=== PATIENT | female | born 1970 | race Caucasian/White ===

== ENCOUNTER 2016-07-07 10:21 | Inpatient (IN) | payer MEDICARE, BC ==
[~2016-07-07] VITALS: Ht 162.6 cm; Wt 104.1 kg
--- NOTE | ~2016-07-07 | CON ---
PATIENT'S NAME: SHREYAS BURROUGHS [facility] AGE: 45 Y [address] ROOM: [place] [address] LOCATION: GPCU ADMIT DATE: 07/07/2016 Consultation DISCHARGE DATE: FAMILY PHYSICIAN: Lakisha Birch MD ATTENDING PHYSICIAN: Ozzie OCONNOR REFERRING PHYSICIAN: LETICIA CRUZ MD REASON FOR CONSULT: Elevated enzymes. HISTORY OF PRESENT ILLNESS: This is a 45-year-old female, who was admitted to the ICU after cardiac arrest during surgical procedure for fistula graft. She was intubated before her surgery and at the end of the procedure, she received protamine. Her blood pressures dropped, her end-tidal CO2 dropped, and she had PEA. She received epinephrine and CPR was performed. She did have spontaneous return of a pulse and was placed on IV pressors and taken to the ICU. Upon evaluation in the ICU, her blood pressures were very high and she has purposeful movement and opens her eyes while on the ventilator. Throughout the cardiac monitoring, there has been no other rhythm disturbances noted other than the PEA during surgery. Her cardiac enzymes did elevate from 0.04 to as high as 0.192 and now are starting to trend down at 0.181. Her CPK went from 33 up to 1437 and a CK-MB went from 0.5 to 11.7. She has a proBNP of 2719 and it increased to 5563. Her EKG did not show any ST or T-wave changes. Because she is intubated, I am unable to assess whether or not she has had any exertional chest pain or shortness of breath. PAST MEDICAL HISTORY: Was obtained from past medical records. 1. End-stage renal disease, currently on peritoneal dialysis. 2. Obstructive sleep apnea, using CPAP. 3. Fibromyalgia. 4. Depression. 5. Hypercholesterolemia. 6. Diabetes mellitus. 7. Migraine. 8. History of pancreatitis in January 2016. PAST SURGICAL HISTORY: 1. Cholecystectomy on 09/01/2014. 2. Right arm brachiobasilic AV fistula on 02/18/2016. 3. Right arm basilic superficialization on 04/28/2016. 4. Left arm brachioaxillary AV graft on 07/07/2016. 5. Tubal ligation. 6. Placement of peritoneal tap. PATIENT'S NAME: SHREYAS BURROUGHS [facility] AGE: 45 Y [address] ROOM: [address] [address] LOCATION: GPCU ADMIT DATE: 07/07/2016 Consultation DISCHARGE DATE: FAMILY PHYSICIAN: Lakisha Birch MD ATTENDING PHYSICIAN: Ozzie OCONNOR ALLERGIES: MAGNESIUM. HOME MEDICATIONS: 1. Acetaminophen 325 to 650 as needed. 2. Albuterol sulfate, ProAir HFA, 1 puff every 4 hours. 3. Ascorbic acid 500 mg every h.s. 4. Aspirin 81 mg every day. 5. PhosLo 667 mg tablets, she takes 2668 mg t.i.d. 6. Celexa 20 mg daily. 7. Benadryl 75 mg every h.s. 8. Docusate sodium 100 mg every day. 9. Ferrous sulfate 325 mg every h.s. 10. Flovent 2 puffs inhalation b.i.d. 11. Folic acid 1 mg every h.s. 12. Neurontin 300 mg, she takes three 100 mg capsules every h.s. 13. Gentamicin cream, apply topically to peritoneal dialysis exit site daily. 14. Insulin pump with NovoLog insulin. 15. Xalatan eye drops, 1 drop, both eyes daily. 16. Prilosec 40 mg every day. 17. Pravastatin 20 mg daily, she has not started. 18. Inderal 10 mg every h.s. SOCIAL HISTORY: She is . She lives at home with her . She denies history of smoking or illicit drug use. FAMILY HISTORY: Obtained at preop questioning. Mother had high blood pressure, she is a type 2 diabetic, she is alive and well. Father is healthy. She has a sister with breast cancer and another sister, who was born with a hole in her heart. REVIEW OF SYSTEMS: Was unobtainable since she is on the ventilator. PHYSICAL EXAMINATION: VITAL SIGNS: She is 5 feet and 4 inches, she weighs 232 pounds, heart rate is 106, regular sinus rhythm to sinus tachycardia, she is afebrile. HEENT: She has an oral ET tube in. LUNGS: Her lung sounds are clear to auscultation. CV: Regular, but tachycardic. ABDOMEN: Obese, but soft. There is no bruits felt in the left graft surgical site. PATIENT'S NAME: SHREYAS BURROUGHS [facility] AGE: 45 Y [address] ROOM: [place] [address] [facility] ADMIT DATE: 07/07/2016 Consultation DISCHARGE DATE: FAMILY PHYSICIAN: Lakisha Birch MD ATTENDING PHYSICIAN: Ozzie OCONNOR EXTREMITIES: Cool to touch. LABORATORY DATA: Hemoglobin is 7.9, white count 25.7, BUN 62, creatinine 10, sodium 138, potassium is 4.8, and hemoglobin A1c is 6.2. ASSESSMENT: 1. Elevated cardiac enzymes, initially they were normal, this certainly could be related to her most recent cardiac event that included CPR. We will check an echocardiogram and review for left ventricular function and wall motion abnormalities. 2. Anemia. She will continue with her iron therapy. 3. End-stage renal disease. She is on peritoneal dialysis. 4. Diabetes mellitus. This is being monitored by the hospitalist. The assessment and plan, history of present illness, and physical exam are per Dr. Howell. We would like to thank Dr. Oconnor for allowing us to participate in her care. TU TANG APRN FOR GIOVANY HOWELL MD TGP/modl /[id number] d: 07/10/[id number] t: 07/30/16 0922, CONSULTATION REPORT
--- NOTE | ~2016-07-07 | ENPV ---
Vascular Lower Extremities Arterial Duplex Procedure Demographics Patient Name SHREYAS BURROUGHS Date of Study 07/08/2016 Patient Number [id number] Gender Female Date of 1970 Age 45 Visit Number [id number] Height 64 Accession Number [id number] Weight 232.01 Referring Eyal Zamora MD Interpreting David García MD Physician David García MD Physician Physician Ordering Physician David García MD Clothing Sorter Product Support Sales Representative Pravin Sosa [facility] Conclusions Summary Duplex imaging of the right leg reveals a hemodynamically significant stenosis of the common femoral artery. Possible hemodynamically significant stenosis of the profunda femoral artery. 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 Duplex imaging of the left leg suggests mild diffuse disease in the left lower extremity. Procedure Type of Study: Extremities Arteries:Lower Extremities Arterial Duplex, Arterial Lower Extremity Right. Indications for Study:Absent pulses. Patient Status:STAT. Study Location:Inpatient Portable. Technical Quality:Limited visualization due to body habitus. - Preliminary reported to:Dr. Hernandez. Velocities are measured in cm/s ; Diameters are measured in cm LE Duplex Measurements + ++-----+ +----+---+ + ! !!Right! !Left! ! ! + ++-----+ +----+---+ + !Location !!PSV !Wave Desc.! !PSV!Wave Desc. ! + ++-----+ +----+---+ + !Dist EIA !!211 !Biphasic ! !160!Biphasic ! + ++-----+ +----+---+ + !Femoral !!338 !Biphasic ! !205!Triphasic ! + ++-----+ +----+---+ + !PFA !!73 !Monophasic! ! ! ! + ++-----+ +----+---+ + !Prox SFA !!150 !Monophasic! ! ! ! + ++-----+ +----+---+ + !Mid SFA !!126 !Monophasic! ! ! ! + ++-----+ +----+---+ + !Dist SFA !!62 !Monophasic! ! ! ! + ++-----+ +----+---+ + !Prox Popliteal !!58 !Monophasic! ! ! ! + ++-----+ +----+---+ + !Mid Popliteal !!0 !Occluded ! ! ! ! + ++-----+ +----+---+ + !Dist Popliteal !!0 !Occluded ! ! ! ! + ++-----+ +----+---+ + !Prox NEWS CAMERA PERSON !!0 !Absent ! ! ! ! + ++-----+ +----+---+ + !Mid NEWS CAMERA PERSON !!0 !Absent ! ! ! ! + ++-----+ +----+---+ + !Dist NEWS CAMERA PERSON !!0 !Absent ! ! ! ! + ++-----+ +----+---+ + !DP !!0 !Absent ! ! ! ! + ++-----+ +----+---+ + Signature dtt: ARASH HERNANDEZ: 07/08/16 0811 Physician Self Edit
--- NOTE | ~2016-07-07 | OR ---
PATIENT'S NAME: SHREYAS BURROUGHS [facility] AGE: 45 Y [address] ROOM: [place] [address] LOCATION: CU ADMIT DATE: 07/07/2016 OR/Procedure Report DISCHARGE DATE: FAMILY PHYSICIAN: Lakisha Birch MD ATTENDING PHYSICIAN: RICKY HERNANDEZ SURGEON: Ricky Hernandez MD BARREL FILLER HEAD: DATE OF PROCEDURE: 07/07/2016 PREOPERATIVE DIAGNOSIS: End-stage renal disease. POSTOPERATIVE DIAGNOSIS: End-stage renal disease. PROCEDURE: Left arm brachial axillary AV graft. BICYCLE REPAIR TECHNICIAN: RUDDY Lester. ANESTHESIA: General. ESTIMATED FLUID LOSS: 10 mL. COMPLICATIONS: The patient had a sudden cardiac arrest at the end of the surgery. DESCRIPTION OF PROCEDURE: The patient was brought to the operating room, placed supine on the operating room table, prepped and draped in a sterile manner. Preoperative time-out was performed. The patient received preoperative antibiotics. We made a standard incision 2 cm proximal to the antecubital fossa. Dissected down to the fascia, incised the fascia in a longitudinal manner. Dissected out the brachial artery. This artery was extremely small in nature. We then repeated the same process with the axillary vein, dissected down to the fascia, incised the fascia in a longitudinal manner. This vein was also small in the region of 2 to 3 mm. We tunneled a 4 x 7 graft from the axillary incision to the brachial incision. We then gave 5000 units of heparin. We clamped on the proximal distal artery, made arteriotomy size 4 mm and then did a standard running 6-0 Prolene anastomosis. We then repeated the same thing in the axilla with a 7 mm anastomosis from the graft to the vein. Deep layers were closed with 2-0 and 3-0 Vicryl after reversal of heparin with protamine and then the skin was closed with interrupted nylons. Immediately post procedure, the patient just had a sudden loss of end-tidal CO2 and was found not to have a measurable blood pressure. ACLS protocols were commenced, and the patient regained spontaneous circulation as well as breathing. A central line was placed emergently as well as a femoral arterial line in the operating room. The patient was transferred to the Surgical ICU in stable, but critical condition. PATIENT'S NAME: SHREYAS BURROUGHS [facility] AGE: 45 Y [address] ROOM: [address] [address] LOCATION: GICU ADMIT DATE: 07/07/2016 OR/Procedure Report DISCHARGE DATE: FAMILY PHYSICIAN: Lakisha Birch MD ATTENDING PHYSICIAN: RICKY HERNANDEZ RICKY HERNANDEZ MD FKM/modl /[id number] d: 07/07/16 2243 t: 07/10/16 0927, OPERATIVE SUMMARY
--- NOTE | ~2016-07-07 | OR ---
PATIENT'S NAME: SHREYAS BURROUGHS [facility] AGE: 45 Y [address] ROOM: [place] [address] [facility] AD[facility] DATE: 07/07/2016 OR/Procedure Report DISCHARGE DATE: FAMILY PHYSICIAN: Lakisha Birch MD ATTENDING PHYSICIAN: Ozzie DOMINIQUE SURGEON: Aleja Jacques MD MICA LAMINATING MACHINE FEEDER: DATE OF PROCEDURE: 07/15/2016 PROCEDURE PERFORMED: Esophagogastroduodenoscopy. INDICATION: Anemia. MEDICATIONS: Please see Anesthesiology record for details. CONSENT: The risks/benefits/alternatives were discussed and the patient or her power of director data expressed understanding and agreed to proceed. Informed consent was obtained and placed in the chart. Time-out was completed prior to starting the procedure. PROCEDURE: Patient was placed in the left lateral decubitus position. One- lead EKG monitoring was used along with intermittent blood pressure monitoring and pulse oximetry. Bite block was placed in the patient's mouth. The above medications were given and titrated to response. Once adequate sedation was completed, the endoscope was passed through the patient's mouth into the posterior oropharynx. The endoscope was then passed into the esophagus, stomach and duodenal bulb. The duodenum was examined through the third portion. The endoscope was then withdrawn into the stomach. In the stomach, retroflexion was completed. The scope was then straightened and withdrawn from the patient. The patient tolerated the procedure well. There were no complications. FINDINGS: 1. Normal esophagus. 2. Gastritis with erosions in the fundus. There was some fresh blood in this area but no active bleeding from the erosions at the time of the procedure. 3. No ulcerations were seen. 4. Normal duodenum with prominent villi, therefore no biopsies were taken. ASSESSMENT AND PLAN: Chronic anemia: I suspect the patient's anemia is multifactorial given known end-stage renal disease. However, she does have erosions in the stomach which are likely contributing and oozing intermittently. Therefore, I recommend b.i.d. PPI for one month and then daily PPI therapy. She should also have a colonoscopy done as an outpatient. PATIENT'S NAME: SHREYAS BURROUGHS [facility] AGE: 45 Y [address] ROOM: [place] [address] LOCATION: GPCU ADMIT DATE: 07/07/2016 OR/Procedure Report DISCHARGE DATE: FAMILY PHYSICIAN: Lakisha Birch MD ATTENDING PHYSICIAN: Ozzie DOMINIQUE She is currently refusing to do prep as an inpatient. Okay to advance diet as tolerated. J MD DELIA BELLO/yovany /[id number] d: 07/15/16 1624 t: 08/20/16 0842, OPERATIVE SUMMARY
--- NOTE | ~2016-07-07 | ECHO ---
Transthoracic Echocardiography Report (TTE) Demographics Patient Name SHREYAS BURROUGHS Date of Study 07/08/2016 Patient Number [id number] Visit Number [id number] Date of 1970 Room Number G6203 Accession Number [id number] Gender Female Age 45 year(s) Referring Eyal Maddoxsslynette Zamora Occupational Therapy Assistant Pravin Preciado Physician MD David Cary MD Physician Interpreting Juan Jose Daniel Polymerization Supervisor Physician Supervising Ordering Physician Marlyn Cary MD, MD/MLP Nurse Stress Strip Catcher Conclusions Contractility Score Summary Normal Left Ventricular contractility was noted. Summary Definity contrast used to help visualize the endocardial borders better to assess for regional WMA. LV systolic function is hyperdynamic. The estimated left ventricular ejection fraction is >70%. Mild concentric left ventricular hypertrophy. Diastolic assessment reveals Grade I diastolic dysfunction. Apical artifact. After Definity contrast iv there is no filling defect suggestive of thrombus. Epicardial fat pad noted. Procedure Type of Study TTE procedure:2D Echocardiogram, M-Mode, Doppler , Color Doppler. Procedure Date Date: 07/08/2016 Start: 07:14 AM Study Location: Inpatient Portable Technical Quality: Fair due to body habitus. Indications:Elevated cardiac enzymes. Patient Status: Routine Contrast Medium: Definity. Amount - 1 ml HR: 108 bpm BP: 101/60 mmHg M-Mode/2D Measurements LV Diastolic Dimension: 3.93 cm LV Systolic Dimension: 1.71 cm LV Septum Diastolic: 1.25 cm LV PW Diastolic: 1.2 cm AO Root Dimension: 2.4 cm Cardiac Output: 9.59 l/min LA Dimension: 3.7 cm EF Estimated: 65 % LVOT: 1.8 cm LVOT VTI: 34.9 cm RV Base: 2.23 cm LV Stroke volume: 88.76 ml RV Length: 7.2 cm TAPSE: 1.81 cm TDI-S': 18.5 cm/s Doppler Measurements AV Peak Velocity: 2.05 m/s MV Peak E-Wave: 1.04 m/s AV Peak Gradient: 16.81 mmHg MV Peak A-Wave: 1.47 m/s AV Mean Gradient: 11 mmHg MV E/A Ratio: 0.71 LVOT Peak Velocity: 1.9 m/s MV P1/2t: 45 msec TR Gradient:12.53 mmHg PV Peak Velocity: 1.38 m/s Estimated RAP:10 mmHg PV Peak Gradient: 7.62 mmHg Estimated RVSP: 23 mmHg Estimated PASP: 22.53 mmHg E' Septal Velocity: 0.07 m/s A' Septal Velocity: 0.14 m/s E' Lateral Velocity: 0.1 m/s A' Lateral Velocity: 0.18 m/s Findings Left Ventricle The left ventricle is normal in size . Mild concentric left ventricular hypertrophy. Diastolic assessment reveals Grade I diastolic dysfunction. Apical artifact. After Definity contrast iv there is no filling defect suggestive of thrombus. Right Ventricle Normal right ventricle structure and function. Left Atrium Normal left atrial size. Right Atrium Normal right atrial size. IVC measures 1.20 cm with inspiratory collapse. Mitral Valve Mild mitral annular calcification. Mild calcification of the mitral valve. Aortic Valve The aortic valve is mildly sclerotic. It is not well seen. Tricuspid Valve Trivial tricuspid regurgitation by color Doppler. Pulmonic Valve Normal pulmonic valve structure and function. Pericardial Effusion No evidence of pericardial effusion. Epicardial fat pad noted. Miscellaneous Visualized portions of the aortic root and ascending aorta appear normal in size. Pleural Effusion No evidence of pleural effusion. Contractility Score LV regional wall motion:(0-Non visualized 1-Normal 2-Hypokinesis 3-Akinesis 4-Dyskinesis 5-Aneurysm) Signature dtt: SEB CORRALES dtd: 07/08/16 0714 Physician Self Edit
--- NOTE | ~2016-07-07 | CON ---
PATIENT'S NAME: SHREYAS BURROUGHS [facility] AGE: 45 Y [address] ROOM: [address] [address] LOCATION: GICU ADMIT DATE: 07/07/2016 Consultation DISCHARGE DATE: FAMILY PHYSICIAN: Lakisha Birch MD ATTENDING PHYSICIAN: ARASH ROUSE REFERRING PHYSICIAN: LETICIA CRUZ MD CHIEF COMPLAINT: Cardiopulmonary arrest secondary to pulseless electrical activity during AV graft placement procedure, likely secondary to protamine reaction. HISTORY OF PRESENT ILLNESS: This is a 45-year-old female who has a long history of end-stage renal disease, on peritoneal dialysis at home, and today underwent left arm AV graft placement and during the procedure, the patient received protamine and apparently the patient had a severe allergic reaction and developed cardiac arrest from pulseless electrical activity and also acute hypoxemic respiratory failure with pulmonary arrest, requiring intubation, and I am not sure how long was the cardiac resuscitation with CPR. The patient did not require hypothermia protocol. The patient was intubated and stabilized and had return of spontaneous circulation and was transferred to the ICU for further management. The patient is currently intubated and sedated and also on Levophed drip and currently getting the usual peritoneal dialysis. The patient is currently hemodynamically stable, on Levophed drip, sedated, and saturating at 100% on ventilator. Hospitalist team has been consulted for management of her hyperglycemia. REVIEW OF SYSTEMS: As mentioned in the history of present illness. All other systems are reviewed and are negative except those mentioned in history of present illness. PAST MEDICAL HISTORY: According to the medical chart and I got the story from the patient's mother at the bedside: 1. End-stage renal disease, on peritoneal dialysis every night. 2. Type 1 diabetes, on insulin pump. 3. Obstructive sleep apnea, on home CPAP. 4. Depression. 5. Fibromyalgia. ALLERGIES: PROTAMINE ON THIS ADMISSION AND SHE ALSO HAS CEPHALEXIN WELL MAGNESIUM, INSULIN ZINC, AND ADHESIVE TAPE. FROM THE MEDICAL RECORDS WITH CEPHALEXIN, SHE GETS THROAT TIGHTENING, WHEEZING, AND SHORTNESS OF BREATH; WITH THE ADHESIVE TAPE, SHE GETS BLISTER FROM THE TAPE; MAGNESIUM CAUSES RASH, PATIENT'S NAME: SHREYAS BURROUGHS [facility] AGE: 45 Y [address] ROOM: [address] [address] LOCATION: [facility] ADMIT DATE: 07/07/2016 Consultation DISCHARGE DATE: FAMILY PHYSICIAN: Lakisha Birch MD ATTENDING PHYSICIAN: ARASH ROUSE SWELLING, AND ITCHING; INSULIN ZINC, SHE DOES NOT RECALL THE REACTION. HOME MEDICATIONS: 1. Tylenol 325-650 mg p.o. every 6 hours p.r.n. for pain or fever. 2. Albuterol 1 puff inhalation every 4 hours p.r.n. for shortness of breath or wheezing. 3. Vitamin C 500 mg p.o. every night at bedtime. 4. Aspirin 81 mg p.o. daily. 5. Calcium acetate 2668 mg p.o. 3 times a day with meals. 6. Celexa 20 mg p.o. daily. 7. CPAP at night. 8. Pressure is at 12 cm of water. 9. Benadryl 75 mg p.o. every night at bedtime. 10. Colace 100 mg p.o. daily p.r.n. for constipation. 11. Ferrous sulfate 325 mg p.o. every night at bedtime. 12. Flovent 2 puff inhalation twice a day p.r.n. for shortness of breath and nasal allergy. 13. Folic acid 1 mg p.o. every night at bedtime. 14. Gabapentin 300 mg p.o. every night at bedtime. 15. Gentamicin cream 1 application topical every day. 16. Insulin pump. 17. Latanoprost 1 drop each eye every night at bedtime. 18. Prilosec 40 mg p.o. daily. 19. Pravastatin 20 mg p.o. daily. 20. Propranolol 10 mg p.o. every night at bedtime. SOCIAL HISTORY: Cannot be obtained from the patient given the patient is intubated and sedated. I got a social history from the patient's mother at the bedside and the patient's mother says that she was a very light former social smoker, does not remember how much or how long and she was a former social alcohol drinker, but was never abusive and never had alcohol withdrawal. Denies any illegal drugs. PAST SURGICAL HISTORY: From the medical record, it shows status post cholecystectomy and also tubal ligation. FAMILY HISTORY: Mother suffers from type 2 diabetes and hypertension and is alive. Father from a motor vehicle accident many years ago. The patient's mother does not remember much about the past medical history of her . PHYSICAL EXAMINATION: VITAL SIGNS: At the time of my dictation, temperature 98.3, heart rate 110, PATIENT'S NAME: SHREYAS BURROUGHS [facility] AGE: 45 Y [address] ROOM: [place] [address] LOCATION: [facility] ADMIT DATE: 07/07/2016 Consultation DISCHARGE DATE: FAMILY PHYSICIAN: Lakisha Birch MD ATTENDING PHYSICIAN: ARASH ROUSE respirations 15, blood pressure 114/52, and saturation 100% on AC mode, tidal volume 450, rate at 15, PEEP at 5, FiO2 is 30%, ET CO2 26 currently. GENERAL APPEARANCE: Sedation score about 3 and intubated. HEENT: Pupils are equally round and reactive to light. Cannot assess extraocular muscle movement given the patient is sedated. No JVD. Nasal turbinates are normal without any signs of bleeding. Oral cavity is intubated. No lip swelling. No tongue swelling at the moment. CARDIOVASCULAR: Tachycardic. No murmur, no rubs, no gallops. RESPIRATORY: Clear. No wheezing, no rales, no rhonchi, no crackles. ABDOMEN: Obese, soft. Bowel sounds decreased. I could not appreciate any mass. No abdominal rigidity. Has a peritoneal dialysis catheter in place. EXTREMITIES: +1 pitting edema in bilateral lower extremity anterior calves. SKIN: No ulcer, no rash, no cyanosis at the moment. MUSCULOSKELETAL: No muscle rigidity. Passive range of motion intact in all 4 extremities. NEUROLOGIC: The patient's sedation score is 3. Cannot perform a full neurological exam. Babinski negative bilaterally. LABORATORY DATA: Troponin less than 0.04 at the first set, CPK 33, ProBNP 2719, and CK-MB 0.5. White blood cells 29.5, hemoglobin 10, hematocrit 32.2, MCV 105.9, and platelet 470. Glucose 278, BUN 44, creatinine 10.3, sodium 138, potassium 4.2, chloride 103, CO2 20, and calcium 8.0. Total protein 6, albumin 2.0, AST 32, ALT 17, alkaline phosphatase 120, and total bilirubin 0.4. Phosphorus 5.2, magnesium 1.5, GFR 4, anion gap 19.2. IMAGING STUDY: Chest x-ray today after intubation showed endotracheal tube about 1 cm above the ortega. Right internal jugular catheter tip is in the upper right atrium. No pneumothorax. Heart and lungs are essentially normal. EKG today, July 07, 2016, at 3:24 p.m. shows sinus tachycardia, heart rate 105, no acute ischemic changes. MO 162 msec, QRS 81 msec, QTc 460 msec. I do not appreciate any ST elevation or ST depression. ASSESSMENT AND PLAN: 1. Type 1 diabetes management: Insulin pump will be taken off given the patient is intubated and sedated. For now, I am going to check a basic metabolic panel and look at bicarbonate to make sure she is not in DKA. In the meantime, I am going to treat her with subcutaneous insulin regimen using the formula of 1 unit/kg per day divided in 2 doses. This is a formula for a rough estimate of daily insulin requirement. She weighed 105 kg; therefore, she will require roughly 100 units of insulin daily requirement per day. 50% of this will be given a long-acting in 2 divided doses which will be equal to 25 mg twice a day and other 50 units of insulin will be given as fast acting typically and the patient's PATIENT'S NAME: SHREYAS BURROUGHS [facility] AGE: 45 Y [address] ROOM: [address] [address] LOCATION: [facility] ADMIT DATE: 07/07/2016 Consultation DISCHARGE DATE: FAMILY PHYSICIAN: Lakisha Birch MD ATTENDING PHYSICIAN: ARASH ROUSE eating will be 3-4 times a day, but since the patient is n.p.o. and intubated and sedated, I will be getting the fast acting with subcutaneous regular insulin every 4 hours with a high dose algorithm. Depending on her glycemia every 4 hours, we can titrate the regimen. For the patient's DKA, of course I am going to start insulin drip. If she fails current subcutaneous insulin regimen with Levemir and also the regular high dose algorithm, then we will put her on the insulin drip and transition to subcutaneous regimen once the fingerstick glucose is under control. Hence, we will be careful with IV fluids given the patient is a dialysis patient and does not make any urine and is currently on peritoneal dialysis. Further plan depends on clinical course. We will check a hemoglobin A1c as well. 2. Cardiopulmonary arrest secondary to pulseless electrical activity in the setting of protamine reaction: The patient is currently intubated and sedated and also continue Levophed drip to keep the MAP more than 65. Director Of Sustainability has been consulted and is managing the critical care of this patient involving the ventilator setting. We will also titrate the Levophed as necessary to keep the MAP more than 65. Hence, we will be careful with vasopressor-induced acrocyanosis as a side effect from vasoconstriction effect causing cyanosis in the distal extremities. I will check another EKG and cardiac enzymes in the morning. I will also get an echo in the morning. Cardiology can be consulted if necessary. Currently, EKG is not ischemic. Troponin, CK-MB, and CPK are normal at the first set. Continue IV Solu-Medrol as already ordered by seed cleaner in the setting of anaphylaxis from protamine. 3. End-stage renal disease, on dialysis: Continue current peritoneal dialysis. Nephrology is following and managing. 4. Obstructive sleep apnea: She is currently intubated and sedated. Continue the vent setting being managed by the seed cleaner. 5. Deep venous thrombosis prophylaxis: The patient is currently on heparin subcutaneous 5000 units 3 times a day. Time spent on the day of consultation in care 50 minutes including chart review, examining the patient, interviewing the patient's mother at the bedside, and went over the plan of care in detail and addressing all the questions and concerns for the nurses and also for the patient's mother at the bedside. NAI CÁRDENAS MD CC/modl PATIENT'S NAME: SHREYAS BURROUGHS [facility] AGE: 45 Y [address] ROOM: [address] [place] [id number] LOCATION: [facility] ADMIT DATE: 07/07/2016 Consultation DISCHARGE DATE: FAMILY PHYSICIAN: Lakisha Birch MD ATTENDING PHYSICIAN: ARASH ROUSE /[id number] d: 07/08/16 0245 t: 07/27/16 2310, CONSULTATION REPORT
--- NOTE | ~2016-07-07 | CON ---
PATIENT'S NAME: SHREYAS BURROUGHS [facility] AGE: 45 Y [address] ROOM: [place] [address] LOCATION: GPCU ADMIT DATE: 07/07/2016 Consultation DISCHARGE DATE: FAMILY PHYSICIAN: Lakisha Birch MD ATTENDING PHYSICIAN: Ozzie DOMINIQUE DATE OF CONSULTATION: 07/07/2016 REFERRING PHYSICIAN: LETICIA CRUZ MD This is a [facility] Nephrology consultation. REASON FOR CONSULTATION: End-stage renal disease, on peritoneal dialysis. HISTORY OF PRESENT ILLNESS: This is a 45-year-old female patient, who is well known to Dr. Hoyos, who presents to the OR today with Dr. Hernandez for a left arm brachial axillary AV graft placement. The procedure went well until the patient did receive protamine to reverse her heparin and had a reaction that caused cardiac arrest. The patient was transferred to ICU for further management. At the time of the exam, the patient was intubated and sedated, on pressors. She does have a longstanding history of end-stage renal disease from diabetic nephropathy and is currently on CCPD. She has been having some complications with her CCPD and has been evaluated by Dr. Hernandez for fistula placement and it is known that she does have small vessels and recently lost her AV fistula in the opposite arm. She was seen by Dr. Hernandez today for AV graft placement. Therefore, Dr. Hooys has been asked to manage her peritoneal dialysis while she is hospitalized. PAST MEDICAL HISTORY: As listed above including; 1. End-stage renal disease, on CCPD. 2. Diabetic nephropathy. 3. Major depressive disorder. 4. Hypoalbuminemia. 5. Secondary hyperparathyroidism. 6. Anemia of chronic disease. PAST SURGICAL HISTORY: Peritoneal dialysis catheter placement. SOCIAL HISTORY: The patient does live at home with her , who is her primary caregiver. He does also help in a care partnership for CCPD. No history of smoking or PATIENT'S NAME: SHREYAS BURROUGHS [facility] AGE: 45 Y [address] ROOM: [address] [address] LOCATION: GPCU ADMIT DATE: 07/07/2016 Consultation DISCHARGE DATE: FAMILY PHYSICIAN: Lakisha Birch MD ATTENDING PHYSICIAN: TRIP,Dagmawe illicit drug use. No alcohol abuse. FAMILY HISTORY: Reviewed and is noncontributory towards CKD or dialysis. ALLERGIES: BEEF, INSULIN, AND MAGNESIUM. CURRENT HOME MEDICATIONS: 1. Tylenol 650 mg p.o. q.6 hours p.r.n. for pain. 2. Albuterol 1 puff inhalation q.4 hours p.r.n. for shortness of breath. 3. Ascorbic acid 500 mg p.o. q.h.s. 4. Aspirin 81 mg daily at bedtime. 5. Calcium acetate 2668 mg p.o. t.i.d. with meals. 6. Celexa 20 mg daily. 7. Benadryl 25 mg 3 tablets at bedtime. 8. Docusate 100 mg daily. 9. Ferrous sulfate 325 mg daily at bedtime. 10. Fluticasone 2 puffs inhalation twice a day p.r.n. for shortness of breath. 11. Folic acid 1 mg daily at bedtime. 12. Gabapentin 300 mg p.o. q.h.s. 13. Gentamicin 1 application topically daily, apply to peritoneal dialysis exit site. 14. Insulin aspart per insulin pump. 15. Xalatan 2.5 drops, 1 drop in both eyes daily. 16. Omeprazole 20 mg 2 tablets daily. 17. Pravastatin 20 mg daily. 18. Propranolol 10 mg daily at bedtime. REVIEW OF SYSTEMS: Essentially unable to obtain a full review of systems due to the patient's current intubated and sedated status. is interviewed and does offer no complaints. LABORATORY DATA: WBCs 25.7, hemoglobin 7.9, hematocrit 25.5, and platelets 262. Glucose is 540, BUN is 60, creatinine 9.9, sodium 133, potassium 4.9, chloride 98, CO2 is 19, calcium is 8.9, albumin is 2.6, AST is 68, ALT is 26, alkaline phosphatase 73, and Mag is 1.6. PHYSICAL EXAMINATION: VITAL SIGNS: Blood pressure is 149/57, pulse is 115, respirations 16, temperature 98.5, and saturations are 100% on 30% FiO2. Weight is 107 kg. GENERAL: On exam, the patient is intubated and sedated. PATIENT'S NAME: SHREYAS BURROUGHS [facility] AGE: 45 Y [address] ROOM: [address] [place], [place] [address] [facility] ADMIT DATE: 07/07/2016 Consultation DISCHARGE DATE: FAMILY PHYSICIAN: Lakisha Birch MD ATTENDING PHYSICIAN: Ozzie DOMINIQUE HEENT: Her head is normocephalic and atraumatic. Eyes are reactive to light and had no asymmetry. Nose is midline. Mouth, no gingival bleeding. ET tube present. NECK: Full and thick. Unable to assess for JVD. Trachea is midline. No thyromegaly or lymphadenopathy. LUNGS: Lung sounds are diminished in the bases bilaterally. CARDIOVASCULAR: Regular rate and rhythm. Tachycardic occasionally with a heart rate of 112 beats per minute on auscultation. ABDOMEN: Soft, nontender, and nondistended. Bowel sounds are positive. Obese. EXTREMITIES: Show no lower extremity edema bilaterally. SKIN: She does have diffuse petechiae rash on both lower extremities and upper extremities. ASSESSMENT AND PLAN: 1. End-stage renal disease, on CCPD. We will obtain the patient's outpatient clinical record and provide peritoneal dialysis accordingly. The patient does appear at this time to be volume overloaded. We will ultrafiltrate as tolerated with labile blood pressures. At the time of exam, the patient is currently on Levophed. 2. Acute respiratory failure, intubated per Dr. Cruz at this time. 3. Status post cardiac arrest. 4. Cardiogenic shock. This is likely secondary to cardiac arrest and the patient is on Levophed. We will wean as tolerated. 5. Protamine reaction. This was severe, manifested by hemodynamic collapse. We will follow with recommendations. 6. Status post left arm arteriovenous graft placement. Due to the patient's cardiac arrest, this may not be functional. We will follow with further recommendations as warranted. This patient has been seen and assessed by Dr. Hoyos. Her care is being conducted in consultation with Dr. Hoyos as well as me. We will plan the patient's CCPD as previously scheduled. ALIDA RANDOLPH DNP, [employer] CHRIS HOYOS MD ENS/modl /[id number] d: 07/12/16 1937 t: 07/22/16 1640, CONSULTATION REPORT
--- NOTE | ~2016-07-07 | DS ---
PATIENT'S NAME: SHREYAS BURROUGHS [facility] AGE: 45 Y [address] ROOM: [place] [address] LOCATION: GPCU ADMIT DATE: 07/07/2016 Discharge Summary DISCHARGE DATE: 07/16/2016 FAMILY PHYSICIAN: Lakisha Birch MD ATTENDING PHYSICIAN: Anastasia Horne ADMITTING DIAGNOSIS: Anaphylactic shock. DISCHARGE DIAGNOSIS: Anaphylactic shock, resolved. SECONDARY DIAGNOSES: 1. Acute respiratory failure - present on admission, resolved. 2. Acute metabolic encephalopathy, present on admission, resolved. 3. Diabetic ketoacidosis, present on admission, resolved. 4. Anemia of blood loss, chronic, stable, status post 1 unit of packed red blood cells. 5. Upper gastrointestinal bleed, present on admission, chronic, status post EGD, on Protonix. 6. Diabetes mellitus type 1, present on admission, on insulin pump. 7. Urinary tract infection, present on admission, treated with antibiotic. 8. Obstructive sleep apnea, present on admission, on CPAP. 9. Ischemic right foot secondary to pressor use, resolved. 10. End-stage renal disease, on peritoneal dialysis. Present on admission. 11. Physical deconditioning. PT, OT. PROCEDURES: EGD, peritoneal dialysis, central line placement, and oral airway intubation. CONSULTATIONS: Pulmonology, Nephrology, Physical Therapy, Occupational Therapy, and Vascular Surgery. HISTORY OF PRESENTING ILLNESS: The patient is a 45-year-old female with past medical history of obesity, hypertension, ESRD on peritoneal dialysis, who presents here initially to our hospital for right arm brachial basilic superficialization per Dr. Hernandez. Soon after the surgery, the patient was given protamine and had severe anaphylactic shock secondary to protamine. HOSPITAL COURSE: The patient was found to have protamine allergy with anaphylactic shock. The patient had a cardiac arrest with pulseless electrical activity and also found to be in acute hypoxic respiratory failure with pulmonary arrest requiring intubation. The patient was adequately resuscitated and was transferred to the ICU. In the ICU, the patient remained to be on mechanical ventilation and pressors. The patient was also found to be in DKA and also UTI. The patient was treated with antibiotic, aztreonam, and she was started on insulin drip. During her ICU stay, the patient was PATIENT'S NAME: SHREYAS BURROUGHS [facility] AGE: 45 Y [address] ROOM: [address] [place] [id number] LOCATION: GPCU ADMIT DATE: 07/07/2016 Discharge Summary DISCHARGE DATE: 07/16/2016 FAMILY PHYSICIAN: Lakisha Birch MD ATTENDING PHYSICIAN: Anastasia Horne found to have ischemic change in her right foot. Pressors were switched with improvement of right ischemic foot. Currently, the patient has adequate blood flow and palpable pulse. The patient was extubated and was transferred out to the general medical floor. During her stay, the patient was found to be anemic, etiology most likely secondary to GI bleed and menorrhagia, also component of CKD. The patient had EGD on July 15, 2016 and it shows erosive gastritis with mild oozing blood. The patient was started on Protonix p.o. b.i.d. The patient declined to have a colonoscopy. During her stay, the patient also continued to have her peritoneal dialysis. Due to her ICU stay, the patient was found to be in physical deconditioning. The patient was seen by PT/OT. Offered the patient for acute rehab. However, the patient declines to be admitted into Acute Rehab for further physical strengthening. The patient now was discharged home with home health with PT/OT. The patient to follow up with Dr. Medrano for peritoneal dialysis, follow up with Dr. Hernandez for her AV fistula, and also follow up with GI with possible repeat EGD and colonoscopy. CONDITION: Stable. DISPOSITION: Home with home health. DISCHARGE MEDICATIONS: Please see list of her medications on MAY. DISCHARGE INSTRUCTIONS: Follow up with PCP, Nephrology, and GI. Follow up as stated as above. Greater than 30 minutes was spent on discharge planning. ANASTASIA HORNE MD AD/modl /[id number] d: 07/17/16 0547 t: 07/18/16 1610, DISCHARGE SUMMARY
--- NOTE | ~2016-07-07 | CON ---
PATIENT'S NAME: SHREYAS BURROUGHS [facility] AGE: 45 Y [address] ROOM: [address] [address] LOCATION: GICU ADMIT DATE: 07/07/2016 Consultation DISCHARGE DATE: FAMILY PHYSICIAN: Lakisha Birch MD ATTENDING PHYSICIAN: ARASH HERNANDEZ DATE OF CONSULTATION: 07/07/2016 REFERRING PHYSICIAN: LETICIA CRUZ MD REQUESTING PHYSICIANS: Dr. Arriaga from the Anesthesia Service and Dr. Hernandez, vascular surgeon. REASON FOR CONSULTATION: Evaluation and management of a patient with acute respiratory failure, status post intubation. CHIEF COMPLAINT: Cardiac arrest. HISTORY OF PRESENT ILLNESS: This is a 45-year-old female with history of end-stage renal disease, on peritoneal dialysis; type 1 diabetes mellitus, on insulin pump; morbid obesity; and other comorbidities who presented earlier today for a graft placement for better access to start hemodialysis on her. She had previous attempts at placing AV fistulas, but because of her small vessels, these attempts failed. For this surgery, the patient had to be intubated, and apparently, she had a relatively difficult airway. However, eventually the intubation was uneventful. At the end of the procedure, protamine was administered for heparin reversal. At that time, the patient's blood pressure dropped to undetectable levels and the end-tidal CO2 dropped from 30s to 10 in a matter of minutes. Essentially she was in PEA arrest, and was given epinephrine and chest compressions were started. Because of her severe vasculopathy, a pulse could not be clearly identified for approximately 10 minutes. The patient had return of spontaneous circulation eventually and was transferred to our intensive care unit, intubated, and on Levophed drip. At that time, I was called by the Anesthesia physician, Dr. Arriaga, to come and evaluate the patient. At the time of my evaluation, the patient was intubated without any sedation, but still on Levophed drip. Her mechanical ventilator settings were: assist-control mode, tidal volume of 450, rate of 15, PEEP of 5, and 50% FiO2. Her oxygen saturations were 100% on these settings. She was not overbreathing the vent, but was able to wake up with very strong stimuli. Her peak inspiratory pressures were in the mid 20s. I did a 5-minute CPAP trial and her respiratory rate was around 8 with a tidal volume of 500, while on CPAP of 5 and pressure support of 8. It seems that her graft clotted off during the episode of cardiac arrest. Because of her acute respiratory failure and PATIENT'S NAME: SHREYAS BURROUGHS [facility] AGE: 45 Y [address] ROOM: [address] [address] LOCATION: GICU ADMIT DATE: 07/07/2016 Consultation DISCHARGE DATE: FAMILY PHYSICIAN: Lakisha Birch MD ATTENDING PHYSICIAN: ARASH HERNANDEZ shock state, I was asked by Dr. Arriaga and by Dr. Hernandez to come and evaluate the patient. PAST MEDICAL HISTORY: 1. End-stage renal disease, on peritoneal dialysis since 2010. 2. Obstructive sleep apnea, on CPAP. 3. Type 1 diabetes mellitus, on insulin pump. 4. Depression. 5. Fibromyalgia. PAST SURGICAL HISTORY: 1. Laparoscopic cholecystectomy for acute cholecystitis in 2014. 2. Tubal ligation. ALLERGIES: TO MAGNESIUM, INSULIN, ZINC, ADHESIVE TAPE, AND CEPHALEXIN. MEDICATIONS: Medications at home were reviewed as per chart and are currently reconciled by the pharmacy team. SOCIAL HISTORY: There is no history of smoking, illicit drug abuse, or alcohol use. She is full code. She lives at home with her . FAMILY HISTORY: Could not be performed because of the patient's clinical status. She was intubated after cardiac arrest and not able to provide any information. REVIEW OF SYSTEMS: Could not be performed because of the patient's clinical status. She was intubated after cardiac arrest and not able to provide any information. PHYSICAL EXAMINATION: VITAL SIGNS: Temperature was 98.4, heart rate was 105, respiratory rate of 15, blood pressure was 168/74 while on Levophed drip, oxygen saturation 100% on 50% FiO2 and PEEP of 5. Weight 105.5 kg, height 5 feet and 4 inches with a BMI of 39.9. GENERAL: She is a young female intubated and sedated with sedation analgesia score of 2. HEENT: Atraumatic head. Pupils were reactive to light and had no asymmetry. Anicteric sclerae. Moist oral mucosa. Microglossia noted. NECK: Thick, short, could not evaluate for JVD. Trachea was midline. No thyromegaly. CARDIOVASCULAR: Regular rhythm. Tachycardic with a heart rate of 112 on my PATIENT'S NAME: SHREYAS BURROUGHS [facility] AGE: 45 Y [address] ROOM: [address] [place], [place] [address] LOCATION: [facility] ADMIT DATE: 07/07/2016 Consultation DISCHARGE DATE: FAMILY PHYSICIAN: Lakisha Birch MD ATTENDING PHYSICIAN: ARASH HERNANDEZ exam. No murmurs, rubs, or gallops. RESPIRATORY: She had decreased breath sounds at both lung bases but clear to auscultation. ABDOMEN: Soft, nontender, and nondistended. Bowel sounds were diminished. EXTREMITIES: No lower extremity edema. No cyanosis and no clubbing. SKIN: She had a diffuse petechial rash on both lower extremities and upper extremities. LABORATORY AND DIAGNOSTIC DATA: Prior to surgery, her WBC was 10.7, hemoglobin was 8.2, hematocrit was 26.6, platelets of 355. Accu-Chek glucose was 133, sodium of 138, potassium of 4.2, chloride of 100, total serum bicarbonate of 25, glucose of 125, calcium of 9.1, BUN of 46, creatinine of 10.5, total protein of 7.8, albumin of 2.6. Alkaline phosphatase of 133, AST of 26, ALT of 20. Total bilirubin of 0.4. Chest x-ray after intubation showed the endotracheal tube to be approximately 2 cm above the ortega. She had no significant cardiomegaly and no pulmonary opacities. The right internal jugular central venous catheter was in stable position. There was no pneumothorax. ASSESSMENT AND PLAN: 1. Acute respiratory failure. This is in a patient who had a major procedure that required general anesthesia and also had an episode of cardiac arrest. She is status post intubation with stable respiratory status. 2. Status post cardiac arrest. This was of PEA type and most likely due to protamine reaction. Currently, it is hard to determine her neuro status as she is still under the effect of the general anesthetics. 3. Cardiogenic shock. This is secondary to cardiac arrest. She has a stable hemodynamic status while on Levophed drip. 4. Protamine reaction. This was severe, manifested by hemodynamic collapse. 5. End-stage renal disease. She is on peritoneal dialysis, possibly having access issues for hemodialysis. It seems that the graft that was placed today might have clotted off during the cardiac arrest episode. 6. Status post left arm graft placement. This might be nonfunctional. 7. Type 1 diabetes mellitus. She is on insulin pump as outpatient. 8. Difficult airway. This is most likely due to her morbid obesity and short neck. 9. History of obstructive sleep apnea, on CPAP therapy. PLAN: 1. We would continue with mechanical ventilation, and will monitor the neuro status closely. We will proceed with spontaneous breathing trials when criteria met. I will check for a cuff leak before possible extubation. 2. We will titrate Levophed drip to keep the mean arterial pressure more PATIENT'S NAME: SHREYAS BURROUGHS [facility] AGE: 45 Y [address] ROOM: [place] [address] LOCATION: [facility] ADMIT DATE: 07/07/2016 Consultation DISCHARGE DATE: FAMILY PHYSICIAN: Lakisha Birch MD ATTENDING PHYSICIAN: ARASH HERNANDEZ 64. 3. I will order cardiac enzymes, CPK, CK-MB, EKG, CBC, complete metabolic profile, proBNP, and ABG. 4. I will ask the hospitalist team to help in medical management, especially for diabetes mellitus. 5. We will notify the nephrology team about this admission. 6. We will follow up Dr. Hernandez's recommendations. The current assessment and plan was discussed with multiple providers. I would like to thank you, Dr. Arriaga and Dr. Hernandez, for giving me the opportunity to participate in this patient's care. I spent 40 minutes of critical care time managing acute respiratory failure in a patient status post cardiac arrest with persistent shock. I personally reviewed the data, coordinated care among healthcare providers, and personally updated the family at the bedside. MD SHARI BLACKMAN/yovany /[id number] d: 07/07/167 t: 07/08/16 1323, CONSULTATION REPORT
--- NOTE | ~2016-07-07 | CON ---
PATIENT'S NAME: SHREYAS BURROUGHS [facility] AGE: 45 Y [address] ROOM: [place] [address] LOCATION: GPCU ADMIT DATE: 07/07/2016 Consultation DISCHARGE DATE: FAMILY PHYSICIAN: Lakisha Birch MD ATTENDING PHYSICIAN: Ozzie OCONNOR DATE OF CONSULTATION: 07/13/2016 REFERRING PHYSICIAN: LETICIA CRUZ MD REFERRING PROVIDER: Dr. Ozzie Oconnor. REASON FOR CONSULTATION: Anemia. HISTORY OF PRESENT ILLNESS: This is a pleasant 45-year-old female, who has end-stage renal disease, currently on peritoneal dialysis. On the day of admission, which was 07/07/2016, she presented to the operating room with Dr. Ricky Hernandez for left arm brachial axillary AV graft placement. The procedure went well as the patient was given protamine to reverse her heparin as she had a reaction causing a cardiac arrest. The patient was transferred to ICU for further management. She remained on the ventilator and sedated as well as pressors. She did well and is currently in our progressive care unit. We were asked to see in consultation for the patient's anemia as well as positive Hematest stools. The patient was seen and examined. She does have anemia of chronic kidney disease. She denies any recent blood transfusion. She cannot recall an upper endoscopy or colonoscopy completed. On admission to [facility], her hemoglobin was low at 8.2 with a recheck this morning at 7.1, MCV is 105.5. The patient denies any evidence of blood loss in her stool. She denies any melena or bright red blood per rectum. She also denies any hematemesis or any other known blood loss. The patient was seen, and she denies any current complaints at this point. She also denies any family history of gastrointestinal diseases or cancers to her knowledge. PAST MEDICAL HISTORY: End-stage renal disease, on peritoneal dialysis; diabetic nephropathy; major depressive disorder, hypoalbuminemia, secondary hyperparathyroidism, and anemia of chronic disease. PAST SURGICAL HISTORY: Peritoneal dialysis catheter placement. PATIENT'S NAME: SHREYAS BURROUGHS [facility] AGE: 45 Y [address] ROOM: [place] [address] LOCATION: GPCU ADMIT DATE: 07/07/2016 Consultation DISCHARGE DATE: FAMILY PHYSICIAN: Lakisha Birch MD ATTENDING PHYSICIAN: Ozzie OCONNOR SOCIAL HISTORY: The patient lives at home with her . She denies any history of smoking or illicit drug use or alcohol use. FAMILY HISTORY: She denies any gastrointestinal diseases or cancers to her knowledge. She also denies any family history of polyps. ALLERGIES: BEEF, INSULIN, AND MAGNESIUM. CURRENT MEDICATIONS: Please refer to the medication administration record. REVIEW OF SYSTEMS: A 10-point review of systems was completed. All were negative except for those identified in the history of present illness. PHYSICAL EXAMINATION: GENERAL: Pleasant, 45-year-old female, sitting in the chair, who appears to be in no acute distress. VITAL SIGNS: Temperature 97.8, pulse of 89, respirations of 16, blood pressure 115/59, and oxygen saturation is 96% on 2 L nasal cannula. SKIN: [place], warm, and dry. No jaundice. HEENT: Head is normocephalic and atraumatic. Pupils are equal, round, and reactive to light. Sclerae are clear. Nonicteric. Oral mucosa is pink and moist. No thyromegaly. NECK: Soft and supple. CARDIOVASCULAR: Regular. Normal S1 and S2. RESPIRATORY: Respirations even and unlabored. LUNGS: Clear to auscultation. ABDOMEN: Soft, nontender, and nondistended. Bowel sounds positive x4 quadrants. MUSCULOSKELETAL: No muscle weakness or atrophy. EXTREMITIES: No clubbing or cyanosis. 1+ edema noted to bilateral lower extremities. NEUROLOGIC: Grossly nonfocal. LABS AND DIAGNOSTICS: White blood cell count of 22.3, hemoglobin of 7.1, hematocrit of 23.1, MCV is 105.5, and platelets of 317. Chemistry panel includes a glucose of 168, BUN of 78, creatinine of 8.0, sodium 133, potassium of 4.4, chloride of 94, CO2 of 27, albumin of 2.4, AST elevated yesterday at 136, ALT 58, alkaline phosphatase 85, and total bilirubin 0.4. Previous iron studies included iron of 45, TIBC of 159, percent saturation of 28, vitamin B12 was 445, folate of PATIENT'S NAME: SHREYAS BURROUGHS [facility] AGE: 45 Y [address] ROOM: [address] [place] [id number] LOCATION: [facility] ADMIT DATE: 07/07/2016 Consultation DISCHARGE DATE: FAMILY PHYSICIAN: Lakisha Birch MD ATTENDING PHYSICIAN: Ozzie OCONNOR 16.8, and ferritin was elevated at 2252. ASSESSMENT AND PLAN: Again, this is a pleasant 45-year-old female with anemia of chronic kidney disease as well as end-stage renal disease, currently on peritoneal dialysis. We were asked to see in consultation for the patient's anemia. This is likely chronic secondary to her renal disease. If continued blood loss, the patient does warrant an upper endoscopy and colonoscopy as she does have a positive Hematest stool. This was discussed in depth with the patient as she is not too keen on going forth with any procedure at the present time. She wwill be scheduled for followup in our outpatient clinic for possible evaluation via endoscopically for any other causes of gastrointestinal blood loss. This was discussed per Dr. Jacques. Further recommendations to be given over the course of the patient's hospitalization. Thank you for this consult. JENNIFER MCDONOUGH APRN FOR J MONALISA JACQUES MD MMF/modl /[id number] d: 07/13/161955 t: 08/20/16 0845, CONSULTATION REPORT
[~2016-07-07 10:21] MED LIST: ASCORBIC ACID500 MG PO; ASPIR 8181 MG; BENADRYL25 MG PO; CALCITRIOL0.25 MCG PO; CELEXA20 MG PO; COLACE100 MG PO; COZAAR50 MG PO; CPAP; DELTASONE10 MG PO; FEOSOL325 MG PO; FLOVENT 110 M110 MCG INH; FOLIC ACID1 MG PO; GENTAMICIN SULF30 GM TOP; INDERAL10 MG PO; MIRALAX17 GM PO; MONONESSA 28 T1 EACH PO; NEURONTIN100 MG PO; NIACIN500 M1 PO; NORCO 5-325 MG1 TAB PO; NORCO 5-325 TA1 EACH PO; NORCO 7.5-3251 EACH PO; NOVOLOG100 UNIT/M SUB-Q; PHOSLO667 MG PO; PRAVASTATIN SOD20 MG PO; PRILOSEC20 MG; PROAIR HFA8.5 GM INH; TYLENOL325 MG PO; VICODIN 5-3001 EACH PO; XALATAN2.5 ML OPHTH
[2016-07-07 10:52] LABS: BASOPHIL # 0.1 K/uL (0.0-0.2); BASOPHIL % 0.5 %; EOSINOPHIL # 0.6 K/uL (0.0-0.5); EOSINOPHIL % 5.9 %; HEMATOCRIT 26.6 % (33.0-46.0); HEMOGLOBIN 8.2 g/dL (10.0-15.0); IMMATURE GRANULOCYTE # 0.1 K/uL (0.0-0.3); IMMATURE GRANULOCYTE % 0.8 %; LYMPHOCYTE % 9.2 %; MCH 33.3 pg (27.0-34.0); MCHC 30.8 gm/dL (32.0-36.5); MONOCYTE # 0.5 K/uL (0.0-1.0); MPV 8.9 fl (9.4-12.4); NEUTROPHIL # (ANC) 8.4 K/uL (1.8-7.8); NEUTROPHIL % 78.6 %; NRBC % 0.2 /100WBC (0-0.00); PLATELET COUNT 355 K/uL (150-450); RBC 2.46 M/uL (3.50-5.50); WBC 10.7 K/uL (4.0-11.0)
[2016-07-07 10:53] LABS: MCV 108.1 fl (83.0-98.0); RDW-CV 17.7 % (11.9-14.6)
[2016-07-07 11:07] LABS: ALBUMIN 2.6 gm/dL (3.5-5.0); CALCIUM 9.1 mg/dL (8.5-10.5); TOTAL BILIRUBIN 0.4 mg/dL (0.0-1.5); TOTAL PROTEIN 7.8 g/dL (6.0-8.4)
[2016-07-07 11:08] LABS: ANION GAP 17.2 (10.0-19.0); CREATININE 10.5 mg/dL (0.5-1.1); POTASSIUM 4.2 mMol/L (3.7-5.1)
[2016-07-07 15:50] LABS: BICARBONATE 21.2 mmol/L (18.0-23.0); PCO2 44 mmHg (35-45); PO2 124 mmHg (80-90)
[2016-07-07 15:57] LABS: MCH 32.9 pg (27.0-34.0); MCV 105.9 fl (83.0-98.0); RBC 3.04 M/uL (3.50-5.50); RDW-CV 17.6 % (11.9-14.6)
[2016-07-07 15:58] LABS: HEMATOCRIT 32.2 % (33.0-46.0); MCHC 31.1 gm/dL (32.0-36.5); PLATELET COUNT 470 K/uL (150-450); WBC 29.5 K/uL (4.0-11.0)
[2016-07-07 16:07] LABS: MAGNESIUM 1.5 mg/dL (1.8-2.6); PHOSPHORUS 5.2 mg/dL (2.5-4.9)
[2016-07-07 16:10] LABS: ALK PHOS 120 IU/L (33-138); ALT 17 IU/L (12-78); ANION GAP 19.2 (10.0-19.0); AST 32 IU/L (10-40); BLOOD UREA NITROGEN 44 mg/dL (6-24); CHLORIDE 103 mMol/L (96-110); CO2 20 mMol/L (22-32); CPK 33 IU/L (21-215); CREATININE 10.3 mg/dL (0.5-1.1); ESTIMATED GFR (MDRD EQUATION) 4; POTASSIUM 4.2 mMol/L (3.7-5.1); SODIUM 138 mMol/L (135-145); TOTAL BILIRUBIN 0.4 mg/dL (0.0-1.5)
[2016-07-07 17:10] LABS: BANDED NEUTROPHIL # 2.7 K/uL (0.0-0.1); BANDED NEUTROPHILS % 9 %; LYMPHOCYTE # 0.9 K/uL (0.8-4.0); LYMPHOCYTE % 3 %; MONOCYTE # 0.6 K/uL (0.0-1.0); SEGMENTED NEUTROPHIL # 25.4 K/uL (1.8-7.8); SEGMENTED NEUTROPHIL % 86 %
--- NOTE | 2016-07-07 17:18 | NUR ---
Significant Event: Patient was aditted to ICU post OR after thought to be anaphylactic reaction to a medication during surgery. She arrived intubated without any additional sedation on board. She started to wake up, but would not follow commands and was agitated choking on the tube. Fentanyl IVP and Zofran given. Plan was to extubate, but she does not have a cuff leak. We will rest on the vent over night and she is currently sedated on Propofol 20mcg/kg/min. Levophed started after Propofol to keep MAP >65. She will get Peritoneal dialysis tonight. Follow up: Extubate after cuff leak
[2016-07-07 22:17] LABS: CALCIUM 7.9 mg/dL (8.5-10.5)
[2016-07-07 22:19] LABS: ANION GAP 27.1 (10.0-19.0); POTASSIUM 6.1 mMol/L (3.7-5.1)
[2016-07-07 22:21] LABS: CREATININE 10.4 mg/dL (0.5-1.1)
[2016-07-08 00:13] LABS: BICARBONATE 10.8 mmol/L (18.0-23.0); PCO2 27 mmHg (35-45); PO2 121 mmHg (80-90)
[2016-07-08 00:55] LABS: CALCIUM 8.2 mg/dL (8.5-10.5); POTASSIUM 5.4 mMol/L (3.7-5.1)
[2016-07-08 00:56] LABS: ANION GAP 30.4 (10.0-19.0)
[2016-07-08 00:57] LABS: CREATININE 10.2 mg/dL (0.5-1.1)
[2016-07-08 02:37] LABS: ANION GAP 27.5 (10.0-19.0); POTASSIUM 4.5 mMol/L (3.7-5.1)
[2016-07-08 02:38] LABS: CREATININE 10.1 mg/dL (0.5-1.1)
[2016-07-08 04:26] LABS: BICARBONATE 14.2 mmol/L (18.0-23.0); PCO2 34 mmHg (35-45); PO2 81 mmHg (80-90)
[2016-07-08 04:46] LABS: ALBUMIN 2.8 gm/dL (3.5-5.0); CALCIUM 7.9 mg/dL (8.5-10.5); PHOSPHORUS 3.8 mg/dL (2.5-4.9); POTASSIUM 3.7 mMol/L (3.7-5.1)
--- NOTE | 2016-07-08 04:50 | NUR ---
Significant Event: Opens eyes to stimulation moves all extremities spontaneously. Switched from propofol to versed drip, pt able to rest more comfortably. Pupils are 3.0 and sluggish. HR in 120s throughout the night. SBP in 110s per artline. Switched from Levophed to Vasopressin. Artline to R) groin pulses to R) lower extremity very thready hard to detect even with doppler MD aware. Poor circulation to all extremities. On vent Rate 15, 30% FIO2. Lungs C&D. OG tube to suction. Peritoneal dialysis ran during the night. Drsg to fistula graft site on L) arm. R) IJ quad lumen flush well with good blood return. On insulin drip. Follow up: Extubate today. Accuchecks Q1hr. BMP Q2hrs call hospitalist with results
[2016-07-08 04:51] LABS: ANION GAP 24.7 (10.0-19.0); CREATININE 10.2 mg/dL (0.5-1.1)
[2016-07-08 04:56] LABS: HEMATOCRIT 25.7 % (33.0-46.0); HEMOGLOBIN 7.9 g/dL (10.0-15.0); MCH 33.2 pg (27.0-34.0); MCHC 30.7 gm/dL (32.0-36.5); MPV 9.1 fl (9.4-12.4); PLATELET COUNT 356 K/uL (150-450); RBC 2.38 M/uL (3.50-5.50); RDW-CV 17.5 % (11.9-14.6); WBC 32.2 K/uL (4.0-11.0)
[2016-07-08 04:58] LABS: INR - (THERAPEUTIC) 1.03 (0.92-1.07); PROTIME 10.8 SECONDS (9.8-11.4)
--- NOTE | 2016-07-08 05:02 | NUR ---
Patient remained on 30% FIO2 through out shift with saturations in the high 90's to 100%. End tidal has ran 23-37. Breath sounds have been mostly clear and diminishedin the upper lobes, diminished in the bases. Suctioning scant to small amounts of thick cream/white sputum. Will continue to monitor.
[2016-07-08 06:05] LABS: ABSOLUTE NEUTROPHIL CT (ANC) 29.3 K/uL (1.8-7.8); BANDED NEUTROPHIL # 5.2 K/uL (0.0-0.1); BANDED NEUTROPHILS % 16 %; LYMPHOCYTE # 1.9 K/uL (0.8-4.0); LYMPHOCYTE % 6 %; MONOCYTE # 0.3 K/uL (0.0-1.0); SEGMENTED NEUTROPHIL # 24.2 K/uL (1.8-7.8); SEGMENTED NEUTROPHIL % 75 %
[2016-07-08 06:21] LABS: POTASSIUM 3.3 mMol/L (3.7-5.1)
[2016-07-08 06:22] LABS: ANION GAP 23.3 (10.0-19.0); CREATININE 9.8 mg/dL (0.5-1.1)
[2016-07-08 08:25] LABS: HEMATOCRIT 24.7 % (33.0-46.0); MCH 33.6 pg (27.0-34.0); MCHC 31.6 gm/dL (32.0-36.5); MCV 106.5 fl (83.0-98.0); MPV 8.9 fl (9.4-12.4); PLATELET COUNT 326 K/uL (150-450); RBC 2.32 M/uL (3.50-5.50); RDW-CV 17.3 % (11.9-14.6); WBC 25.7 K/uL (4.0-11.0)
[2016-07-08 08:26] LABS: HEMOGLOBIN 7.8 g/dL (10.0-15.0)
[2016-07-08 08:31] LABS: INR - (THERAPEUTIC) 1.06 (0.92-1.07); PROTIME 11.1 SECONDS (9.8-11.4); PTT 27 SECONDS (25-32)
[2016-07-08 08:45] LABS: ALBUMIN 2.8 gm/dL (3.5-5.0); ANION GAP 20.4 (10.0-19.0); CALCIUM 7.9 mg/dL (8.5-10.5); MAGNESIUM 1.4 mg/dL (1.8-2.6); PHOSPHORUS 2.8 mg/dL (2.5-4.9); POTASSIUM 3.4 mMol/L (3.7-5.1); TOTAL PROTEIN 6.4 g/dL (6.0-8.4)
[2016-07-08 08:48] LABS: CREATININE 9.8 mg/dL (0.5-1.1); TOTAL BILIRUBIN 0.3 mg/dL (0.0-1.5)
[2016-07-08 08:55] LABS: ABSOLUTE NEUTROPHIL CT (ANC) 23.1 K/uL (1.8-7.8); BANDED NEUTROPHIL # 2.6 K/uL (0.0-0.1); BANDED NEUTROPHILS % 10 %; LYMPHOCYTE # 1.5 K/uL (0.8-4.0); LYMPHOCYTE % 6 %; SEGMENTED NEUTROPHIL # 20.6 K/uL (1.8-7.8); SEGMENTED NEUTROPHIL % 80 %
[2016-07-08 09:27] LABS: PERITONEAL FLUID TURBIDITY CLEAR (CLEAR)
[2016-07-08 10:18] LABS: % PERITONEAL FLUID MONO/MACRO 5 % (0-0); % PERITONEAL FLUID NEUT 78 % (0-25)
[2016-07-08 10:34] LABS: ANION GAP 19.8 (10.0-19.0); CALCIUM 8.5 mg/dL (8.5-10.5); POTASSIUM 3.8 mMol/L (3.7-5.1)
[2016-07-08 10:36] LABS: CREATININE 9.8 mg/dL (0.5-1.1)
--- NOTE | 2016-07-08 11:23 | NUR ---
IF UNABLE TO EXTUBATE REC NEPRO @ 40 ML/HR.
--- NOTE | 2016-07-08 12:15 | NUR ---
D: Physical Therapy Note. I: Patient not seen for Physical Therapy this date due to LE circulation issues. P: Begin Physical Therapy with patient when medically appropriate. 07/08/16 Sadia LaguerrePT
[2016-07-08 12:44] LABS: ANION GAP 17.4 (10.0-19.0); CALCIUM 8.8 mg/dL (8.5-10.5); POTASSIUM 4.4 mMol/L (3.7-5.1)
[2016-07-08 12:48] LABS: CREATININE 9.9 mg/dL (0.5-1.1)
[2016-07-08 13:13] LABS: CPK 1139 IU/L (21-215)
[2016-07-08 14:32] LABS: ANION GAP 18.9 (10.0-19.0); CALCIUM 9.3 mg/dL (8.5-10.5); POTASSIUM 4.9 mMol/L (3.7-5.1)
[2016-07-08 14:33] LABS: CREATININE 9.9 mg/dL (0.5-1.1)
--- NOTE | 2016-07-08 14:45 | NUR ---
D: Assumed cares @ 1445. Withdraws to pain, sedated on Versed. SBP 100's, then elevated at 1600 to 170's. HR 100's. Edema 2+ all over. Periphery is cyanotic, but pedal pulses are doppled, limbs are cool, capillary refill < [address] Hernandez aware. R) leg circulation has improved throughout the day, with pink to the ankle. Remains on ventilator AC FiO2 30%, TV 450, RR 15 and PEEP of 5. OG has thin green output, canister changed at 1600. NO BM today, NO UOP this shift. PD catheter site is c/d/i, dialysis nurse here to perform PD at 1700. Heparin infusing at 1600 units/h. Insulin turned off at 1600, D50% given x 1, BS rechecked every 30 minutes, last BS checked at 1700 was 77. Follow up: Need UA. Turn off Sedation in AM to check for alertness. restart Insulin gtt at 4.5 units per hour when BS > 110.
[2016-07-08 16:16] LABS: ANION GAP 18.9 (10.0-19.0); CALCIUM 9.3 mg/dL (8.5-10.5); POTASSIUM 4.9 mMol/L (3.7-5.1)
[2016-07-08 16:17] LABS: CREATININE 9.9 mg/dL (0.5-1.1)
--- NOTE | 2016-07-08 17:34 | NUR ---
D: ALLERGIC REACTION I: VENT, MDI R: PT REMAINED ON 30% FIO2 T/O DAY, BS C&D IN UPPER LOBES & DIM IN BASES, SXNED OUT SCANT THIN CLEAR SECRETIONS, CHECK FOR CUFF LEAK THIS AM & PT HAD NO LEAK AROUND ETT, NO OTHER SIGNIFICANT CHANGES T/O DAY P: CONT WITH CUFF LEAK CHECKS EVERYDAY
[2016-07-08 18:34] LABS: CALCIUM 8.8 mg/dL (8.5-10.5)
[2016-07-08 18:39] LABS: CREATININE 9.8 mg/dL (0.5-1.1)
[2016-07-08 22:49] LABS: ANION GAP 18.4 (10.0-19.0); CREATININE 7.4 mg/dL (0.5-1.1); POTASSIUM 4.4 mMol/L (3.7-5.1)
[2016-07-09 04:29] LABS: PCO2 40 mmHg (35-45); PO2 87 mmHg (80-90)
[2016-07-09 04:30] LABS: BICARBONATE 22.1 mmol/L (18.0-23.0)
--- NOTE | 2016-07-09 04:47 | NUR ---
Patient remained on 30% FIO2 with saturations in the mid 90's. Breath sounds are clear and diminished and more diminished in the bases. Suctioning scant amounts of thin, clear. End tidal has min in the mid 30's. Patient started to have a cuff leak this AM. Will continue to monitor.
--- NOTE | 2016-07-09 04:53 | NUR ---
Significant event: Patient sedated on Versed. By third assessment was moving spontaneously some--did not follow commands. Plan to stop Versed at 0500 for sedation vacation. Hopeful to extubate today. Patient does have a cuff leak. Withdraws to pain. VSS. HTN and tachycardic. Generalized edema. PERRL. Pedal pulses dopplered. Hands and feet are cool to touch. Right foot continues to improve in cyanosis. Capillary refill < 3 seconds. 1+ radial pulses. AC mode for vent with FiO2 30%, TV 350, RR 15, and PEEP 5. OG with green output. Bowel sounds active. No BM this shift. Peritoneal dialysis catheter in place and working all night. Site remains C/D/I. No UOP. Insulin gtt restarted r/t DKA. Heparin infusing at 1600 units/h. Insulin turned off at 1600, D50% given x 1, Follow up: need UA, sedation vacation, extubate
[2016-07-09 05:45] LABS: ALBUMIN 2.6 gm/dL (3.5-5.0); CALCIUM 8.9 mg/dL (8.5-10.5); MAGNESIUM 1.6 mg/dL (1.8-2.6); POTASSIUM 4.9 mMol/L (3.7-5.1); TOTAL BILIRUBIN 0.3 mg/dL (0.0-1.5); TOTAL PROTEIN 6.2 g/dL (6.0-8.4)
[2016-07-09 05:47] LABS: ANION GAP 20.9 (10.0-19.0)
[2016-07-09 05:48] LABS: CREATININE 9.9 mg/dL (0.5-1.1)
[2016-07-09 05:52] LABS: HEMATOCRIT 25.5 % (33.0-46.0); MCH 33.1 pg (27.0-34.0); MCV 106.7 fl (83.0-98.0); MPV 9.5 fl (9.4-12.4); PLATELET COUNT 262 K/uL (150-450); RBC 2.39 M/uL (3.50-5.50); RDW-CV 17.3 % (11.9-14.6)
[2016-07-09 05:54] LABS: HEMOGLOBIN 7.9 g/dL (10.0-15.0); WBC 25.7 K/uL (4.0-11.0)
[2016-07-09 06:28] LABS: ABSOLUTE NEUTROPHIL CT (ANC) 24.2 K/uL (1.8-7.8); BANDED NEUTROPHIL # 1.8 K/uL (0.0-0.1); BANDED NEUTROPHILS % 7 %; LYMPHOCYTE # 0.8 K/uL (0.8-4.0); LYMPHOCYTE % 3 %; MONOCYTE # 0.8 K/uL (0.0-1.0); SEGMENTED NEUTROPHIL # 22.4 K/uL (1.8-7.8); SEGMENTED NEUTROPHIL % 87 %
[2016-07-09 07:19] LABS: ANION GAP 20.6 (10.0-19.0); CALCIUM 9.1 mg/dL (8.5-10.5); POTASSIUM 4.6 mMol/L (3.7-5.1)
[2016-07-09 07:31] LABS: CREATININE 9.9 mg/dL (0.5-1.1)
[2016-07-09 09:36] LABS: ANION GAP 19.5 (10.0-19.0); CALCIUM 9.2 mg/dL (8.5-10.5); POTASSIUM 4.5 mMol/L (3.7-5.1)
[2016-07-09 09:44] LABS: CREATININE 9.7 mg/dL (0.5-1.1)
--- NOTE | 2016-07-09 10:28 | NUR ---
Reviewed chart, pt remains on ventilator and no family in room or waiting room. Lives in [place] with spouse, lawn care worker will follow and assist with dc planning as we know more about what dc needs she will have. Does PD dialysis at home.
--- NOTE | 2016-07-09 12:26 | NUR ---
Diabetes center note: 1230 Continue to follow this patient and blood sugars via meditech and nurses notes. Patient was on an insulin pump, Omni Pod at home, prior to hospitalization. Patient is currently on ventilator, sedated and anticipate patient to be here for a period of time. At this time, anticipate that patient will not be a candidate to manage her own pump for at least 1-2 days, or longer. We will reassess patient's condition next Tuesday, July 12, 2016, to see if/when she may be considered again to restart pump
[2016-07-09 13:32] LABS: ANION GAP 18.8 (10.0-19.0); CALCIUM 8.8 mg/dL (8.5-10.5); POTASSIUM 4.8 mMol/L (3.7-5.1)
--- NOTE | 2016-07-09 14:05 | NUR ---
CONSULT RECEIVED FOR TF RECS. REC NEPRO @ 40 ML/HR TO PROVIDE 1728 KCAL, 78 G PRO. RECS IN CHART AND GIVEN TO MD AT MORNING ICU ROUNDS.
--- NOTE | 2016-07-09 15:55 | NUR ---
Pt remained on ventilator support t/o shift, 30% Fio2, Etco2 30-35. Lung sounds clear/diminished uppers, diminished bases. Sxn small thin clear/white with spont cough from Pt. Cuff leak present, Pt not following commands in AM. Will continue with current setting, SBT in AM?
[2016-07-09 17:26] LABS: ANION GAP 16.8 (10.0-19.0); CALCIUM 8.9 mg/dL (8.5-10.5); POTASSIUM 4.8 mMol/L (3.7-5.1)
[2016-07-09 17:27] LABS: CREATININE 9.9 mg/dL (0.5-1.1)
--- NOTE | 2016-07-09 17:50 | NUR ---
Significant Event: Patient drowsy. Moves spontaneously. Follows commands. Opens eyes to voice. R) foot cyanotic from chronic PVD. Sinus tachycardia. Edema in feet and neck. Remains intubated, some over breathing. OG tube, mild suction. Anuric. Patient menstruating. New L) arm fistula, no bruit or thrill. PD @ HS. IV to R) AC SL. R) IJ running Insulin gtt at 4.5 units/hr, Heparin gtt @ 1200 units/hr, and D5 1/2NS @ 40ml/hr. Blood glucose this AM 460's, now 99. ACCU q1hr. Follow up: Plan to extubate tomorrow.
[2016-07-09 21:04] LABS: ANION GAP 18.7 (10.0-19.0); POTASSIUM 4.7 mMol/L (3.7-5.1)
--- NOTE | 2016-07-10 05:09 | NUR ---
No changes made to vent settings this shift. FiO2 currently 30% for O2 sats of 99-100% ETCO2 was 33-36 throughout the shift. Breathsounds clear and diminished in the upper lobes bilaterally and more diminished in the bases bilaterally. Suctioning scant to small amounts of thick clear secretions. Will continue to monitor patient.
[2016-07-10 05:17] LABS: BASOPHIL % 0.1 %; IMMATURE GRANULOCYTE # 0.2 K/uL (0.0-0.3); IMMATURE GRANULOCYTE % 0.8 %; LYMPHOCYTE # 0.5 K/uL (0.8-4.0); LYMPHOCYTE % 2.7 %; MCH 32.6 pg (27.0-34.0); MCHC 29.6 gm/dL (32.0-36.5); MCV 110.1 fl (83.0-98.0); MONOCYTE # 1.2 K/uL (0.0-1.0); MONOCYTE % 6.2 %; MPV 9.2 fl (9.4-12.4); NEUTROPHIL # (ANC) 17.1 K/uL (1.8-7.8); NEUTROPHIL % 90.2 %; NRBC % 0.2 /100WBC (0-0.00); PLATELET COUNT 247 K/uL (150-450); RBC 2.18 M/uL (3.50-5.50); RDW-CV 17.2 % (11.9-14.6)
[2016-07-10 05:18] LABS: HEMOGLOBIN 7.1 g/dL (10.0-15.0); WBC 18.9 K/uL (4.0-11.0)
[2016-07-10 05:22] LABS: ALBUMIN 2.5 gm/dL (3.5-5.0); ANION GAP 18.1 (10.0-19.0); CALCIUM 8.8 mg/dL (8.5-10.5); POTASSIUM 4.1 mMol/L (3.7-5.1); TOTAL BILIRUBIN 0.3 mg/dL (0.0-1.5); TOTAL PROTEIN 6.2 g/dL (6.0-8.4)
[2016-07-10 05:23] LABS: CREATININE 9.6 mg/dL (0.5-1.1)
--- NOTE | 2016-07-10 06:03 | NUR ---
Significant Event: Patient remains on ventilator without sedation. VSS. PRN fentanyl given for restlessness. PRN lopressor given for SBP>170. Peritoneal dialysis infusing overnight. No issues with PD. No urine. Currently on period. Follows commands, restless at times. Moves spontaneously as well. and mother at bedside for part of shift. OG to LIS with brown colored bile output. Remains on insulin gtt and heparin gtt. Left arm without bruit/thrill. Pulses in feet doppler-unable to doppler right dorsalis pedis-according to day shift nurse this is not new and MDs are aware. Extremities pale and cool to touch. Follow up: Extubate. Continue to monitor
[2016-07-10 09:57] LABS: ANION GAP 17.9 (10.0-19.0); CALCIUM 9.8 mg/dL (8.5-10.5); POTASSIUM 3.9 mMol/L (3.7-5.1)
[2016-07-10 09:58] LABS: CREATININE 9.6 mg/dL (0.5-1.1)
[2016-07-10 11:17] LABS: HEMOGLOBIN 7.5 g/dL (10.0-15.0)
--- NOTE | 2016-07-10 14:35 | NUR ---
Significant Event: Extubated at 0815, on 4L NC. Alert and oriented x3. Follows commands. Up to chair full lift. Doppler pulses to lower extremities. afebrile. Og Dc'd. Anuric. Peritoneal dialysis. Dressing to L) arm intact. R) IJ quad lumen infusing heparin, insulin gtt. Next PTTHP at 0500. Pericares provided. Family at bedside. Follow up: monitor.8
[2016-07-10 16:08] LABS: HEMOGLOBIN 7.4 g/dL (10.0-15.0)
[2016-07-10 22:36] LABS: HEMATOCRIT 23.5 % (33.0-46.0)
[2016-07-10 22:37] LABS: HEMOGLOBIN 7.3 g/dL (10.0-15.0)
[2016-07-11 05:09] LABS: CALCIUM 9.1 mg/dL (8.5-10.5)
[2016-07-11 05:14] LABS: BASOPHIL % 0.1 %; HEMATOCRIT 22.9 % (33.0-46.0); IMMATURE GRANULOCYTE # 0.2 K/uL (0.0-0.3); IMMATURE GRANULOCYTE % 1.1 %; LYMPHOCYTE # 0.6 K/uL (0.8-4.0); LYMPHOCYTE % 2.9 %; MCHC 31.4 gm/dL (32.0-36.5); MONOCYTE % 4.7 %; MPV 9.4 fl (9.4-12.4); NEUTROPHIL # (ANC) 19.8 K/uL (1.8-7.8); NEUTROPHIL % 91.2 %; NRBC % 0.2 /100WBC (0-0.00); PLATELET COUNT 255 K/uL (150-450); RBC 2.18 M/uL (3.50-5.50); RDW-CV 16.8 % (11.9-14.6)
[2016-07-11 05:16] LABS: CREATININE 8.5 mg/dL (0.5-1.1)
[2016-07-11 05:18] LABS: HEMOGLOBIN 7.2 g/dL (10.0-15.0); WBC 21.7 K/uL (4.0-11.0)
--- NOTE | 2016-07-11 06:19 | NUR ---
Significant Event: Patient alert and oriented but forgetful. Patient did not sleep this shift. Patient fixates on certain things and worries about vitals, blood sugars, airway, etc. Patient reassured that staff is monitoring patient but patient continues to state she is concerned. conected peritoneal dialysis. Insulin drip continues. Heparin drip continues. Cooperative with cares. Follow up: continue
--- NOTE | 2016-07-11 13:04 | NUR ---
Significant Event: Alert and oriented x3, forgetful/confusion at times. PERRLA. Up to chair 2 assist pivot, PT/OT seeing patient. Doppler pedal pulses. Generalized edema. 1L NC, cpap when sleeping. ADA diet. Anuric. Weighed 106.9 kg on stand up scale. R) IJ quad lumen infusing insulin gtt. Heparin gtt dc'd. PCU status. Diabetic education consult tomorrow. Follow up: transfer to PCU.
--- NOTE | 2016-07-11 17:15 | NUR ---
1600 PT TRANSFERED FROM ICU TO 6301 PCU. AT TIME OF TRANSFER PT IS ALERT AND ORIENTED SLOW TO RESPOND BUT APPROPRIATE. AT BEDSIDE AND DOES ALL OF HER PD. LUNGS ARE CLEAR AND DIMINISHED ABDOMEN IS SOFT AND SLIGHTLY TENDER BUT PT SAYS THIS IS NOT NEW. RADIAL PULSES ARE STRONG PEDAL AND TIBIAL ARE DOPPLED. SHE DOES HAVE LOWER EXTREMITY EDEMA 1-2+. AND GENERALIZED 1+ ALL OVER. ICU REPORT SAYS THAT PT IS A 2 PERSON TRANSFER, BUT STAYS IN HR CHAIR ALL DAY AFTER GETTING UP. ICU ALSO SAYS THAT PT HASNOT SLEPT FOR 3 SHIFT. PT JUST NOW SAYS SHE IS VERY TIRED. AT BEDSIDE AND VERY WELL INFORMED OF HER CARE AND NEEDS. INSULIN GTT CONTINUES. VSS. LT ARM FISTULA IS CLOTTED OFF AND NO GOOD, RT FISTULA IS GOOD.
[2016-07-12 04:19] LABS: ALBUMIN 2.6 gm/dL (3.5-5.0); TOTAL PROTEIN 6.5 g/dL (6.0-8.4)
[2016-07-12 04:21] LABS: CREATININE 8.2 mg/dL (0.5-1.1); TOTAL BILIRUBIN 0.4 mg/dL (0.0-1.5)
[2016-07-12 04:57] LABS: BASOPHIL % 0.1 %; HEMATOCRIT 23.5 % (33.0-46.0); IMMATURE GRANULOCYTE # 0.4 K/uL (0.0-0.3); IMMATURE GRANULOCYTE % 1.6 %; LYMPHOCYTE # 1.4 K/uL (0.8-4.0); LYMPHOCYTE % 6.1 %; MCV 105.9 fl (83.0-98.0); MONOCYTE # 1.8 K/uL (0.0-1.0); MONOCYTE % 7.7 %; MPV 9.3 fl (9.4-12.4); NEUTROPHIL # (ANC) 19.5 K/uL (1.8-7.8); NEUTROPHIL % 84.5 %; NRBC % 0.6 /100WBC (0-0.00); RBC 2.22 M/uL (3.50-5.50); RDW-CV 16.9 % (11.9-14.6)
[2016-07-12 05:01] LABS: HEMOGLOBIN 7.3 g/dL (10.0-15.0); MCH 32.9 pg (27.0-34.0); MCHC 31.1 gm/dL (32.0-36.5); PLATELET COUNT 314 K/uL (150-450); WBC 23.1 K/uL (4.0-11.0)
--- NOTE | 2016-07-12 07:37 | NUR ---
Significant Event: a&o. makes repetive requests. full lift but has good bed mobility. vss.cpap at night. sinus tach per tele. alirio UE fistula and PD dialysis. per PD RN. insulin gtt per protocol. anuric. R IJ flushes/blood return. spouse at bedside. c/o heart burn, hospitalist notified. cardiac enzymes and EKG ordered, normal. protonix given early. IV abx as ordered. Follow up:cont w/plan of care
[2016-07-12 08:31] LABS: CPK 3687 IU/L (21-215)
--- NOTE | 2016-07-12 11:01 | NUR ---
Introduced self and care management services to patient and mom at bedside. Lives in [place] with , does PD dialysis at night at home. Prior to this stay has been independent at home. Weak from events, 2 assist to transfer. She is planning on going home on discharge, mom said she can come over to stay with her so she isn't alone while works. Did discuss with her that if weak and has concerns about going home can see if would qualify for inpt rehab stay, work with therapies 3 hrs/day for a short time to get her stronger before going home. She isn't sure she willneed that. I did put note on chart for physician asking about consult by Dr Sr if they have concerns about her going home on discharge. Will follow.
--- NOTE | 2016-07-12 13:14 | NUR ---
[facility] note: Consult was received in [facility] to assist with patient's insulin pump. Based on the notes in chart, discussion with primary care nurse AND evaluation of the patient, this patient is not a good candidate to go back on her pump. Continues to be managed with insulin gtt, but may need to consider going on Levemir and insulin to carb at meals, if patient is not going to be able to manage her own insulin pump. Patient is sleepy this a.m., when CDE asks patient if she thinks she wants to go back on her pump, she rolls her eyes and shakes her head "NO". Will continue to follow patient and determine when she is a candidate to resume use of her own home insulin pump.
[2016-07-12 15:03] LABS: CPK 3471 IU/L (21-215)
--- NOTE | 2016-07-12 16:30 | NUR ---
Significant Event: Patient A/O x 3. Forgetful. Alarms engaged at all times. Up with 2A to turn and pivot. VSS. Patient had been on room air all day, but required 2L during the last assessment for O2 saturatiosn 87-90%. Wears CPAP at night. Right IJ quad lumen saline locked with dressing changed this shift. Left Upper arm with dressings x 2 for AV fistula graft. Changed AC dressing this shift. PD catheter intact. Anuric. Reported buring chest pain, described as indigestion all morning. Gave GI cocktail, which patient reports relieved the pain. Off insulin gtt and now on accu checks q4h. Follow up: Continue as per plan of care. Monitor blood sugars. Trending cardiac enzymes. Presently trending down.
[2016-07-12 20:28] LABS: CPK 3048 IU/L (21-215)
[2016-07-13 02:46] LABS: CPK 2728 IU/L (21-215)
--- NOTE | 2016-07-13 05:12 | NUR ---
Significant events: Pt A/Ox3, slow to respond. VSS. Tylenol at HS for leg pain. Insulin gtt continues, BG 120-350's. Q1H accuchecks. Pulses doppelered in feet. RA, CPAP while asleep. C/O heartburn at HS but fell asleep shortly after complaint. Slept most of shift. R) IJ quad lumen intact. PD dialysis line in place, set up by . R) upper arm fistula site dressing CDI. No bruit or thrill noted.
[2016-07-13 10:33] LABS: BASOPHIL % 0.1 %; EOSINOPHIL # 0.2 K/uL (0.0-0.5); EOSINOPHIL % 1.1 %; HEMATOCRIT 23.1 % (33.0-46.0); IMMATURE GRANULOCYTE # 0.4 K/uL (0.0-0.3); IMMATURE GRANULOCYTE % 1.9 %; LYMPHOCYTE # 1.5 K/uL (0.8-4.0); LYMPHOCYTE % 6.6 %; MCH 32.4 pg (27.0-34.0); MCHC 30.7 gm/dL (32.0-36.5); MCV 105.5 fl (83.0-98.0); MPV 9.3 fl (9.4-12.4); NEUTROPHIL # (ANC) 18.2 K/uL (1.8-7.8); NEUTROPHIL % 81.3 %; NRBC % 0.4 /100WBC (0-0.00); PLATELET COUNT 317 K/uL (150-450); RBC 2.19 M/uL (3.50-5.50); RDW-CV 16.6 % (11.9-14.6)
[2016-07-13 10:34] LABS: HEMOGLOBIN 7.1 g/dL (10.0-15.0); WBC 22.3 K/uL (4.0-11.0)
[2016-07-13 10:53] LABS: ALBUMIN 2.4 gm/dL (3.5-5.0); ANION GAP 16.4 (10.0-19.0); CALCIUM 9.5 mg/dL (8.5-10.5); PHOSPHORUS 4.8 mg/dL (2.5-4.9); POTASSIUM 4.4 mMol/L (3.7-5.1)
--- NOTE | 2016-07-13 12:26 | NUR ---
Diabetes consult: Patient is alert and oriented this morning. Received a call to restart pump, however the patient's pump is not at the hospital. The patient's will be bringing it around 1300. Will plan to help patient restart pump upon arrival.
[2016-07-13 12:33] LABS: CPK 2269 IU/L (21-215)
--- NOTE | 2016-07-13 12:40 | NUR ---
Diabetes consult: Patient's here and insulin pump restarted. Patient had a blood sugar of 85 and had previously had a low of 55. Pump suspended for 30 minutes and then will resume at 1.45 units/hr. Explained the pump policy to the patient's and the patient. Will continue to follow.
--- NOTE | 2016-07-13 13:43 | NUR ---
A - NUTRITION F/U. NA+ 133, GLU 168, BUN/FINGER WAVER 78/8.0, ALB 2.4, WBC 22.3. A/O BUT FORGETFUL. ON PERITONEAL DIALYSIS. PT W/ 1-2+ EDEMA T/O. DIET: DIABETIC, INTAKE REFUSED TO 25%. D - AT RISK W/ INADEQUATE ORAL INTAKE R/T DECREASED APPETITE AEB INTAKE RECORD. I - GOAL: 50% OR BETTER INTAKE BY NEXT REVIEW. M/E - WILL OFFER GLUCERNA TID W/ MEALS AND F/U ON INTAKE IN 2-4 DAYS.
--- NOTE | 2016-07-13 16:24 | NUR ---
Significant Event: Patient more alert today and states she doesn't remember the previous week. Oriented x 3. Up with max 2 assist. VSS on RA throughout the day. Wears CPAP at night. Shut off insulin gtt and started patient's own insulin pump. Nursing to do accu checks ACHS and at 0200 and notify patient of blood sugar so she can adjust her pump accordingly. Reported abdominal/epigastric pain at approximately 1100. Did cardiac workup again which was negative. Given GI cocktail again. Patient reports that it helped after she had a bowel movement. Given 1 unit PRBC's for hgb of 7.1. PD catheter dialysis exchange mid-afternoon. R)IJ quad lumen now SL. Follow up: Continue as per plan of care. Monitor Hemoglobins. Monitor blood sugars.
[2016-07-13 20:02] LABS: CPK 2408 IU/L (21-215)
[2016-07-14 02:13] LABS: CPK 2143 IU/L (21-215)
[2016-07-14 03:20] LABS: ALBUMIN 2.1 gm/dL (3.5-5.0); ANION GAP 16.1 (10.0-19.0); CALCIUM 9.8 mg/dL (8.5-10.5); PHOSPHORUS 3.9 mg/dL (2.5-4.9); POTASSIUM 4.1 mMol/L (3.7-5.1)
[2016-07-14 03:22] LABS: CREATININE 7.7 mg/dL (0.5-1.1)
[2016-07-14 03:42] LABS: BASOPHIL % 0.1 %; EOSINOPHIL # 0.6 K/uL (0.0-0.5); EOSINOPHIL % 3.8 %; HEMATOCRIT 23.5 % (33.0-46.0); IMMATURE GRANULOCYTE # 0.4 K/uL (0.0-0.3); IMMATURE GRANULOCYTE % 2.1 %; LYMPHOCYTE # 1.1 K/uL (0.8-4.0); LYMPHOCYTE % 6.6 %; MONOCYTE # 1.1 K/uL (0.0-1.0); MONOCYTE % 6.7 %; MPV 9.6 fl (9.4-12.4); NEUTROPHIL # (ANC) 13.3 K/uL (1.8-7.8); NEUTROPHIL % 80.7 %; NRBC % 0.4 /100WBC (0-0.00); PLATELET COUNT 301 K/uL (150-450); RBC 2.39 M/uL (3.50-5.50)
[2016-07-14 03:51] LABS: HEMOGLOBIN 7.5 g/dL (10.0-15.0); MCH 31.4 pg (27.0-34.0); MCHC 31.9 gm/dL (32.0-36.5); MCV 98.3 fl (83.0-98.0); RDW-CV 21.4 % (11.9-14.6); WBC 16.4 K/uL (4.0-11.0)
--- NOTE | 2016-07-14 04:06 | NUR ---
Significant events: Pt A/Ox3, more alert as shift progresses. Accuchecks 120-130's. PD set up by . Epigastric pain at beginning of shift relieved with GI cocktail. Pt had lg BM this shift. Does not make urine. R) IJ in place. Insulin pump ran by pt with assistance from . Hgb 7.5 this AM. Continue to monitor.
--- NOTE | 2016-07-14 13:00 | NUR ---
Diabetes consult: Patient reports she is doing well. Nursing called to report that her blood sugar had dropped to 55 this afternoon but recovered to 85 with treatment. The patient is scheduled to have a procedure in the morning and will be NPO after midnight. Patient's has been assisting the patient in managing her insulin pump. Recommend her basal rate be reduced by half early tomorrow morning. Nursing will pass along to the to decrease her basal rate by half when he arrives at 0600. CDE will be around to check basal by 0700 tomorrow morning.
[2016-07-14 15:16] LABS: HEMATOCRIT 24.2 % (33.0-46.0); HEMOGLOBIN 7.7 g/dL (10.0-15.0)
--- NOTE | 2016-07-14 15:52 | NUR ---
Significant Event: Patient A/O x 3. Forgetful. Up with 2A. Walked as far as the bathroom and back today, which was a huge improvement from previous days. Vital signs stable on room air throughout the day. Continues to have a quad lumen IJ. Last dressing change on Tuesday. L)arm dressings off. AC site reddened. David saw and stated it was fine and to keep tape off of it. Hgb 7.5 this A.M. after a unit of blood yesterday. Rechecked this afternoon at 7.7. MD aware. Insulin pump in RLQ. Nursing checking blood sugars and patient running pump. ACHS and 0200. NPO tomorrow for EGD. Follow up: Continue as per plan of care.
--- NOTE | 2016-07-15 04:05 | NUR ---
Significant Event: Patient is alert/oriented x3, often forgetful. Vital signs are stable. On room air. Denies any pain. Patient has not complained of any heartburn symptoms all night. Insulin pump in place, patient did bolus herself around 0330 for blood glucose of 255. set up patient's peritoneal dialysis last night before he went home. Quad lumen IJ in place. Left forearm with limb alert bracelet on, incision is open to air with redness noted around (possibly from tape). Follow up: NPO since midnight for EGD today. Still need GI physician to go over R/B/A and for patient to sign consents.
[2016-07-15 12:51] LABS: BASOPHIL % 0.1 %; EOSINOPHIL # 0.9 K/uL (0.0-0.5); EOSINOPHIL % 5.7 %; HEMATOCRIT 23.8 % (33.0-46.0); IMMATURE GRANULOCYTE # 0.5 K/uL (0.0-0.3); LYMPHOCYTE # 0.9 K/uL (0.8-4.0); LYMPHOCYTE % 5.8 %; MCH 31.8 pg (27.0-34.0); MCHC 31.9 gm/dL (32.0-36.5); MCV 99.6 fl (83.0-98.0); MONOCYTE # 0.9 K/uL (0.0-1.0); MONOCYTE % 5.7 %; MPV 9.4 fl (9.4-12.4); NEUTROPHIL % 79.7 %; NRBC % 0.1 /100WBC (0-0.00); PLATELET COUNT 313 K/uL (150-450); RBC 2.39 M/uL (3.50-5.50); RDW-CV 20.7 % (11.9-14.6)
[2016-07-15 12:52] LABS: HEMOGLOBIN 7.6 g/dL (10.0-15.0)
--- NOTE | 2016-07-15 13:00 | NUR ---
Spoke with patient. She plans to go home when ready for discharge. Asked her about HHC and she doesn't think she will need it. Will try to touchbase with her to talk about discharge plans. Will follow.
--- NOTE | 2016-07-15 19:09 | NUR ---
Significant Event: VSS ON RA. PD THIS AM DISCONNECTED PER PATIENT'S WITH AFTERNOON AND THIS EVENING RUN CONNECTED BY PRIMARY CLASS TEACHER. INSULIN PUMP DISCONNECTED BEFORE LEAVING FLOOR AND RE-CONNECTED AT 1100 PER PATIENT'S . ACHS ACCUCHECKS RECORDED AND CORRECTED BY PATIENT PUMP. TRAMADOL 25MG PO GIVEN AT 1224 FOR RIGHT LEG PAIN WITH RELIEF NOTED. SLEPT MOST OF AFTERNOON WITH CPAP MACHINE. TYLENOL GIVEN X2 LAST AT 1700 WITH MINIMAL RELIEF. CONSISTENTLY REQUESTING FOR MORE TRAMADOL OR "SOMETHING STRONGER". 1PA WITH WALKER/GAIT BELT. BM X1 TODAY. ANURIA. Follow up: LABS IN AM. MONITOR PAIN WITH TRAMADOL AND TYLENOL ORDERED. CPAP AT NIGHT. CONT PER PLAN OF CARE.
[2016-07-16 04:10] LABS: BASOPHIL % 0.1 %; EOSINOPHIL # 0.9 K/uL (0.0-0.5); EOSINOPHIL % 7.4 %; HEMATOCRIT 23.9 % (33.0-46.0); IMMATURE GRANULOCYTE # 0.5 K/uL (0.0-0.3); IMMATURE GRANULOCYTE % 4.1 %; LYMPHOCYTE # 0.9 K/uL (0.8-4.0); LYMPHOCYTE % 7.9 %; MONOCYTE # 0.7 K/uL (0.0-1.0); MONOCYTE % 6.1 %; MPV 9.5 fl (9.4-12.4); NEUTROPHIL # (ANC) 8.9 K/uL (1.8-7.8); NEUTROPHIL % 74.4 %; NRBC % 0 /100WBC (0-0.00); PLATELET COUNT 351 K/uL (150-450); RBC 2.39 M/uL (3.50-5.50); RDW-CV 20.3 % (11.9-14.6); WBC 11.9 K/uL (4.0-11.0)
[2016-07-16 04:13] LABS: HEMOGLOBIN 7.4 g/dL (10.0-15.0)
--- NOTE | 2016-07-16 06:50 | NUR ---
Significant Event: Patient is alert/oriented x3. Vital signs are stable. Continues on room air. Tylenol and tramadol PRN for right foot pain. Uric acid is slightly elevated at 7.6 this AM. Hgb this AM is 7.4. Patient has denied any heartburn symptoms. Right quad lumen IJ in place, SL except for intermitten antibiotics. set up peritoneal dialysis for patient last night. Patient has own insulin pump and accuchecks are done ACHS with basal rate of 1.45. Needs correction of accucheck is > 180. Follow up: Continue to monitor per plan of care.
--- NOTE | 2016-07-16 10:10 | NUR ---
Diabetes center note: 0964 Patient states she is due for set change today, omni pod. Patient states she will have spouse bring supplies, Requests for someone to assist in cutting her toenails, as she states she has in-grown toe nails. Patient is unsure when she will be going home.
--- NOTE | 2016-07-16 11:00 | NUR ---
Introduced self and role of care management to pt and her mother. Plan is to go home and she does want [facility] for therapies and nursing. I gave choices and she did not care. I started with [facility] and they are unable to get in untill Tuesday so I called Janice with [facility] and they would be happy to take her on and [facility] will be up to gather the information and orders I left her. I updated nursing.
[2016-07-16] MEDS ORDERED: DELFLEX PERIT5000 M1 DIALYSIS (12:37)
[2016-07-16] MEDS ORDERED: [UNRECOGNIZED DRUG - OTHER] DIALYSIS ×2 (12:43→12:48)
[2016-07-16] MEDS ORDERED: PROTONIX40 MG PO (13:02)
[2016-07-16] MEDS ORDERED: NORCO 5-325 TA1 EACH PO (13:10)
--- NOTE | 2016-07-16 14:20 | NUR ---
DISMISSAL ORDERS RECIEVED. REVIEWED ALL D/C ORDERS WITH THE PATIENT AND HER SPOUSE. THEY VERBALIZED UNDERSTANDING OF ALL D/C INFORMATION. JEREMÍAS PRINTOUTS GIVEN ON ALL NEW MEDS. HOME HEALTH WAS SET UP BY [facility] AND THEY WERE BOTH IN TO SPEAK WITH THE PATIENT AND HER FAMILY. CENTRAL LINE D/C'D PER PROTOCOL AND MANUAL PRESSURE HELD X15 MINS WITH HEMOSTASIS ACHIEVED; DRESSING C/D/I AND INSTRUCTED TO KEEP DRESSING ON X48 HRS. VSS AND RA. F/U APPTS WERE SCHEDULED AND CARDS SENT. TAKEN VIA W/C AND TRANSPORT TO THE FRONT ENTRANCE OF THE HOSPITAL AND FAMILY TO DRIVE HER HOME.
[2016-11-23] MEDS ORDERED: SENSIPAR 30 MG30 MG PO (00:41)
[2016-11-25] MEDS ORDERED: ASPIRIN (CHILDR81 MG PO (16:56)
[2016-11-25] MEDS ORDERED: LIPITOR40 MG PO (16:58)
[2016-11-25] MEDS ORDERED: PLAVIX75 MG PO (17:00)
[2016-11-25] MEDS ORDERED: PROTONIX40 MG PO (17:04)
[2016-11-25] MEDS ORDERED: TYLENOL325 MG PO (17:06)
[2016-11-25] MEDS ORDERED: CPAP INH ×2 (17:09→17:10)
[2016-11-25] MEDS ORDERED: NITROSTAT0.4 MG SL (17:11)
[2016-11-25] MEDS ORDERED: RANEXA ER500 MG PO (17:12)
[2016-11-25] MEDS ORDERED: TOPROL XL25 MG PO (17:14)
== END 2016-07-16 14:20 | disposition home health service (06) | DRG 673 ==
LOC: GSDC 10:21 → GICU 14:25 → GPCU 14:25 → GICU 07-11 10:06 → GPCU 07-11 14:59
PROVIDERS: Family Medicine; Internal Medicine; Internal Medicine Critical Care Medicine; Internal Medicine Nephrology; Nurse Practitioner; ADMIT Surgery Vascular Surgery
PROC: 5A1D60Z (ICD-10-PCS; principal; 2016-07-07)
PROC: 03180JD Bypass Left Brachial Artery to Upper Arm Vein with Synthetic Substitute, Open Approach (ICD-10-PCS; 2016-07-07)
PROC: 0BH17EZ Insertion of Endotracheal Airway into Trachea, Via Natural or Artificial Opening (ICD-10-PCS; 2016-07-07)
PROC: 5A1945Z Respiratory Ventilation, 24-96 Consecutive Hours (ICD-10-PCS; 2016-07-07)
PROC: 02HV33Z Insertion of Infusion Device into Superior Vena Cava, Percutaneous Approach (ICD-10-PCS; 2016-07-07)
PROC: 30233N1 Transfusion of Nonautologous Red Blood Cells into Peripheral Vein, Percutaneous Approach (ICD-10-PCS; 2016-07-13)
PROC: 0DJ08ZZ Inspection of Upper Intestinal Tract, Via Natural or Artificial Opening Endoscopic (ICD-10-PCS; 2016-07-15)
DX: I12.0 Hypertensive chronic kidney disease with stage 5 chronic kidney disease or end stage renal disease (principal); N18.6 End stage renal disease; J96.01 Acute respiratory failure with hypoxia; G93.41 Metabolic encephalopathy; E10.10 Type 1 diabetes mellitus with ketoacidosis without coma; N25.81 Secondary hyperparathyroidism of renal origin; K29.71 Gastritis, unspecified, with bleeding; Z68.41 Body mass index [BMI] 40.0-44.9, adult; I97.121 Postprocedural cardiac arrest following other surgery; N39.0 Urinary tract infection, site not specified; T88.6XXA Anaphylactic reaction due to adverse effect of correct drug or medicament properly administered, initial encounter; E66.01 Morbid (severe) obesity due to excess calories; G47.33 Obstructive sleep apnea (adult) (pediatric); Z99.2 Dependence on renal dialysis; D63.1 Anemia in chronic kidney disease; G43.909 Migraine, unspecified, not intractable, without status migrainosus; F32.9 Major depressive disorder, single episode, unspecified; D50.0 Iron deficiency anemia secondary to blood loss (chronic); Y83.2 Surgical operation with anastomosis, bypass or graft as the cause of abnormal reaction of the patient, or of later complication, without mention of misadventure at the time of the procedure; Y92.234 Operating room of hospital as the place of occurrence of the external cause; Z79.4 Long term (current) use of insulin; Z96.41 Presence of insulin pump (external) (internal); M79.7 Fibromyalgia; Z78.1 Physical restraint status; T45.7X5A Adverse effect of anticoagulant antagonists, vitamin K and other coagulants, initial encounter; I70.201 Unspecified atherosclerosis of native arteries of extremities, right leg
CPT/HCPCS: C1751; C9113; J0171; J0610; J1100; J1644; J2250; J2405; J2704; J2720; J2920; J2930; J3010; J7030; J7040; J7050; L8670; P9016; P9045; Q9957

== ENCOUNTER 2016-08-02 21:01 | Emergency (ER) | payer MEDICARE, BC ==
--- NOTE | ~2016-08-02 | ER ---
PATIENT'S NAME: SHREYAS BURROUGHS [facility] AGE: 45 Y [address] ROOM: [place] [address] LOCATION: [facility] ADMIT DATE: 08/02/2016 ER/Outpatient Report DISCHARGE DATE: 08/02/2016 FAMILY PHYSICIAN: Lakisha Birch MD ATTENDING PHYSICIAN: Kevin Lock Admission date and time documented in the medical record. I saw the patient at 2115 hours. CHIEF COMPLAINT: Poor appetite, nausea, lightheadedness, loss of appetite, intermittent abdominal cramping. HISTORY OF PRESENT ILLNESS: This patient is a 45-year-old female, who had an anaphylactic reaction and major problems postop July 12, 2016. Since being discharged from the hospital, she has not felt well. She has had a loss of appetite. Food makes her sick. She is drinking okay. She has had some intermittent abdominal cramping. She has lightheadedness, dizziness with some near syncopal episodes. She has really nauseated but no vomiting or diarrhea. Does not make urine. She is an end-stage renal failure patient, on peritoneal dialysis at night for about 10 hours. Again, just has not felt well since her dismissal from the hospital, July 12 of this year. She has gained a little bit of weight about 10 pounds over the past month. Denies any fever, chills, sweats, or rigors. No cough, colds, or flus. No headache, eyes, ears, nose, throat, neck, or spine pain. No fall or trauma. No chest pain, shortness of breath. Little bit of abdominal cramping. Does not make urine much. She has some swelling peripherally in her lower extremities, but no joint redness or pain. No skin eruptions or rash. Does have insulin-dependent diabetes mellitus type 1, on insulin pump. She does have depression, anxiety, but no psychosis. No neuro changes. HOME MEDICATIONS: See attached medication list. ALLERGIES: MAGNESIUM SULFATE, CEPHALEXIN, ADHESIVE TAPE, INSULIN, ZINC. SOCIAL HISTORY: Nonsmoker, nondrinker. SIGNIFICANT PAST MEDICAL HISTORY: Hypertension; obstructive sleep apnea, using CPAP at night; exogenous obesity; end-stage renal failure, on peritoneal dialysis; insulin-dependent diabetes mellitus type 1, using insulin pump; depression; anxiety; neuropathic pain; PATIENT'S NAME: SHREYAS BURROUGHS [facility] AGE: 45 Y [address] ROOM: [place] [address] LOCATION: [facility] ADMIT DATE: 08/02/2016 ER/Outpatient Report DISCHARGE DATE: 08/02/2016 FAMILY PHYSICIAN: Lakisha Birch MD ATTENDING PHYSICIAN: Kevin Lock gastroesophageal reflux; anemia; hyponatremia; hyperparathyroidism; past history of diabetic ketoacidosis; upper GI bleed; fibromyalgia. OPERATIONS: Esophagogastroduodenoscopy, AV fistula placement x2, peritoneal dialysis catheter placement, cholecystectomy, cardiac catheterization, central line placement. REVIEW OF SYSTEMS: All systems reviewed by me are negative with the exception of those discussed in the history of present illness. PHYSICAL EXAMINATION: VITAL SIGNS: Temperature 99.5 tympanic, pulse 95, respirations 14, blood pressure 178/90, O2 saturation on room air is 100%. HEAD: Normocephalic. EYES, EARS, NOSE, THROAT: Clear. Mucous membranes moist. NECK: Negative. SPINE: Negative. LUNGS: Clear. No rales, rhonchi, or wheezes. HEART: Regular. Pulses are palpable. ABDOMEN: Soft, obese. Some mild tenderness, but no true guarding or rigidity. No rebound tenderness. No organomegaly or abnormal mass palpable. No CVA tenderness. EXTREMITIES: With peripheral edema. No cyanosis. No deformity. Neurovascularly intact. SKIN: Clear. No skin eruptions or rash. LABORATORY DATA AND X-RAYS: CMS was normal except for a low sodium 128, low potassium 3.2, low chloride 91, elevated BUN of 31, elevated creatinine 8.1 with low GFR of 5. Amylase and lipase were normal. CPK was normal at 62. [id number] cardiac enzymes were normal except for an elevated CK-MB of 6.3. CRP was 3.45. White count was 11,600, 66 segs, 13 lymphs, 6 monos, 10 eos, 1 baso, hemoglobin was 7.6, hematocrit 23.5, platelet count was 383,000. Pro-time was 11.1 with an INR of 1.06. Serum ketones were negative. Venous pH was 7.36. Lactate was 1.0. Sedimentation rate was greater than 120. EMERGENCY DEPARTMENT COURSE: I did discuss the patient with Dr. Medrano, lining machine operator. He has recommended to give her 40 mEq of potassium here in the emergency department, dismiss, and followup with her personal physician in 2 to 3 days. IMPRESSION: 1. End-stage renal failure, on peritoneal dialysis. PATIENT'S NAME: SHREYAS BURROUGHS [facility] AGE: 45 Y [address] ROOM: [place] [address] LOCATION: [facility] ADMIT DATE: 08/02/2016 ER/Outpatient Report DISCHARGE DATE: 08/02/2016 FAMILY PHYSICIAN: Lakisha Birch MD ATTENDING PHYSICIAN: Kevin Lock 2. Hypokalemia. 3. Hyponatremia. 4. Anemia, chronic disease. 5. Hypertension. 6. Obstructive sleep apnea, on CPAP. 7. Insulin-dependent diabetes mellitus type 1, using insulin pump. 8. Fibromyalgia. PLAN: The patient was given 40 mEq of potassium orally here in the emergency department. She was given Zofran 4 mg ODT sublingual for nausea. Dismissed home. Continue present home medications and care. Zofran as needed for nausea, vomiting. Follow up with personal physician in 2 to 3 days. Discussion ensued with the patient concerning my findings and recommendations, she understands. MD LESLIE DALTON/modl /[id number] d: 08/03/[id number] t: 08/03/[id number], OUTPATIENT REPORT
[~2016-08-02 21:01] MED LIST changes: +DELFLEX PERIT5000 M1 DIALYSIS; +PROTONIX40 MG PO; +[UNRECOGNIZED DRUG - OTHER] DIALYSIS
[2016-08-02 22:19] LABS: BASOPHIL # 0.1 K/uL (0.0-0.2); BASOPHIL % 0.4 %; EOSINOPHIL # 1.1 K/uL (0.0-0.5); EOSINOPHIL % 9.9 %; HEMATOCRIT 23.5 % (33.0-46.0); HEMOGLOBIN 7.6 g/dL (10.0-15.0); IMMATURE GRANULOCYTE # 0.5 K/uL (0.0-0.3); IMMATURE GRANULOCYTE % 4.6 %; LYMPHOCYTE # 1.5 K/uL (0.8-4.0); LYMPHOCYTE % 13.1 %; MCH 31.7 pg (27.0-34.0); MCHC 32.3 gm/dL (32.0-36.5); MCV 97.9 fl (83.0-98.0); MONOCYTE # 0.7 K/uL (0.0-1.0); MONOCYTE % 6.1 %; MPV 8.4 fl (9.4-12.4); NEUTROPHIL # (ANC) 7.6 K/uL (1.8-7.8); NEUTROPHIL % 65.9 %; NRBC % 0.6 /100WBC (0-0.00); PLATELET COUNT 383 K/uL (150-450); WBC 11.6 K/uL (4.0-11.0)
[2016-08-02 22:29] LABS: INR - (THERAPEUTIC) 1.06 (0.92-1.07); PROTIME 11.1 SECONDS (9.8-11.4)
[2016-08-02 22:48] LABS: ALK PHOS 123 IU/L (33-138); ALT 21 IU/L (12-78); ANION GAP 17.2 (10.0-19.0); AST 26 IU/L (10-40); BLOOD UREA NITROGEN 31 mg/dL (6-24); CALCIUM 8.3 mg/dL (8.5-10.5); CHLORIDE 91 mMol/L (96-110); CO2 23 mMol/L (22-32); CPK 62 IU/L (21-215); CREATININE 8.1 mg/dL (0.5-1.1); ESTIMATED GFR (MDRD EQUATION) 5; POTASSIUM 3.2 mMol/L (3.7-5.1); SODIUM 128 mMol/L (135-145); TOTAL BILIRUBIN 0.3 mg/dL (0.0-1.5); TOTAL PROTEIN 6.2 g/dL (6.0-8.4)
[2016-11-23] MEDS ORDERED: SENSIPAR 30 MG30 MG PO (00:41)
[2016-11-25] MEDS ORDERED: ASPIRIN (CHILDR81 MG PO (16:56)
[2016-11-25] MEDS ORDERED: LIPITOR40 MG PO (16:58)
[2016-11-25] MEDS ORDERED: PLAVIX75 MG PO (17:00)
[2016-11-25] MEDS ORDERED: PROTONIX40 MG PO (17:04)
[2016-11-25] MEDS ORDERED: TYLENOL325 MG PO (17:06)
[2016-11-25] MEDS ORDERED: CPAP INH ×2 (17:09→17:10)
[2016-11-25] MEDS ORDERED: NITROSTAT0.4 MG SL (17:11)
[2016-11-25] MEDS ORDERED: RANEXA ER500 MG PO (17:12)
[2016-11-25] MEDS ORDERED: TOPROL XL25 MG PO (17:14)
== END 2016-08-02 23:55 | disposition disaster alternative care site (69) ==
LOC: GMED 21:01
PROVIDERS: Emergency Medicine
DX: I12.0 Hypertensive chronic kidney disease with stage 5 chronic kidney disease or end stage renal disease (principal); N18.6 End stage renal disease; E87.6 Hypokalemia; E87.1 Hypo-osmolality and hyponatremia; G47.33 Obstructive sleep apnea (adult) (pediatric); E10.9 Type 1 diabetes mellitus without complications; M79.7 Fibromyalgia; Z99.2 Dependence on renal dialysis; Z88.1 Allergy status to other antibiotic agents; Z88.8 Allergy status to other drugs, medicaments and biological substances
CPT/HCPCS: J1885; J2550